=== PATIENT | female | born 1945 | race Caucasian/White ===

== ENCOUNTER 2016-10-21 06:00 | Day surgery (SDC) | payer MEDICARE, OTHER ==
[2016-10-21] MEDS ORDERED: Lactated Ringers 1,000 ML IV SCH (06:30)
[2016-10-21 06:36] VITALS: O2SAT 92
[2016-10-21] MEDS ORDERED: Versed 2 MG/2 ML Injection IV ONE (08:00)
[2016-10-21] MEDS ORDERED: DIPRIVAN 200 MG/20 ML IV ONE ×2 (08:00)
[2016-10-21 08:24] VITALS: BP 123/69; PULSE 69
--- NOTE | 2016-10-21 08:32 | OP ---
SURGERY DATE/TIME: 10/21/2016 0735 PREOPERATIVE DIAGNOSIS: History of colon ulcer. POSTOPERATIVE DIAGNOSIS: Mild sigmoid diverticulosis otherwise normal colon. PROCEDURE: Colonoscopy. SURGEON: Dr. Wadsworth. ANESTHESIA: MAC. Medications given by anesthesia department. HISTORY: The patient is a 71 year-old white female presents now for colonoscopic evaluation. She had a fairly large ulcer in the colon seen approximately two years ago, this was biopsied and found to be benign at the time although we were concerned with the possibility of potential underlying malignancy. The patient was suggested to have examination repeated. She was reappraised of the risks of the procedure including the risk of perforation, phlebitis, untoward reaction to medication, bleeding and missed lesions. The patient verbalized her understanding and desired to have the procedure performed. DESCRIPTION OF PROCEDURE: The patient was given the medications by the anesthesia department. She had continuous pulse oximetry, ECG monitoring, intermittent blood pressure monitoring, and tidal CO2 monitoring during the examination. She was placed in the left lateral decubitus position. A digital rectal examination was performed and revealed normal anal sphincter tone and no masses. The flexible Olympus pediatric colonoscope was used to intubate the rectum. A view of the colon was developed sequentially to the cecum. Upon insertion and withdrawal, including a retroflex view in the rectum was noted a few mild sigmoid diverticula. There was no evidence of the ulcer that was seen previously. The scope was removed from the patient who tolerated the procedure well and was sent back to OP recovery in good condition. The prep was noted to be fair to good.
== END 2016-10-21 09:00 | disposition home or self-care (01) ==
LOC: SDC 06:00
PROVIDERS: ATTEND Family Medicine
PROC: 0DJD8ZZ Inspection of Lower Intestinal Tract, Via Natural or Artificial Opening Endoscopic (ICD-10-PCS; principal; 2016-10-21)
DX: K63.3 Ulcer of intestine (principal); K57.30 Diverticulosis of large intestine without perforation or abscess without bleeding
CPT/HCPCS: 00810; J2250; J2704

== ENCOUNTER 2022-04-07 09:25 | Inpatient (IN) | payer MEDICARE, OTHER ==
--- NOTE | 2022-04-07 09:55 | ERPHSYRPT ---
- History of Present Illness Time Seen by Provider: 04/07/22 09:40 Source: patient, EMS, old records Exam Limitations: no limitations Physician History: This is a morbidly obese 76-year-old white female patient of Dr. Wadsworth who presents with 4-day history of worsening shortness of breath. It is especially worsened over the last 2 days despite prednisone prescription from her primary care provider. Patient does have some central, substernal nonradiating sharp pain with deep inspiration only. Patient was brought to the emergency department by EMS. Patient received a DuoNeb treatment and a single dose of 125 mg intravenous Solu-Medrol prior to arrival. Patient has a history of COPD, asthma, hypertension, hypothyroidism and hyperlipidemia. She does not wear oxygen at home. On arrival, EMS reports that the patient's room air oxygenation level was in the high 80s. Timing/Duration: day(s) (For) Activities at Onset: none Severity of Dyspnea-Max: moderate Severity of Dyspnea-Current: mild (To moderate) Possible Cause: occasional episodes Associated Symptoms: wheezing, weakness, painful breathing (With deep inspiration there is sharp nonradiating substernal central pain), No chest pain/discomfort, No productive cough Allergies/Adverse Reactions: Penicillins Allergy (Severe, Verified 04/07/22 09:30) stops breathing Home Medications: Amlodipine Besylate 5 mg PO HS 10/21/16 [History] Multivitamin [Daily Multivitamin] 1 each PO DAILY 10/21/16 [History] Pravastatin Sodium 40 mg PO DAILY 10/21/16 [History] Spironolactone [Aldactone] 25 mg PO HS 10/21/16 [History] Albuterol Sulfate [Proair Respiclick] 90 mcg IH DAILY PRN PRN 01/21/22 [History] Carvedilol [Coreg] 25 mg PO BID 01/21/22 [History] Levothyroxine Sodium [Levothyroxine] 75 mcg PO DAILY 01/21/22 [History] Hx Tetanus, Diphtheria Vaccination/Date Given: Yes Hx Influenza Vaccination/Date Given: Yes Hx Pneumococcal Vaccination/Date Given: Yes Travel Risk - International Travel Have you traveled outside of the country in past 3 weeks: No - Coronavirus Screening Are you exhibiting any of the following symptoms?: Yes Symptoms: Shortness of Breath Close contact with a COVID-19 positive Pt in past 14-21 Days: No - Review of Systems Constitutional: Weakness Eyes: No Symptoms Ears, Nose, & Throat: No Symptoms Respiratory: Dyspnea, Wheezing Cardiac: No Symptoms Abdominal/Gastrointestinal: No Symptoms Genitourinary Symptoms: No Symptoms Musculoskeletal: No Symptoms Skin: No Symptoms Neurological: No Symptoms Psychological: No Symptoms Endocrine: No Symptoms Hematologic/Lymphatic: No Symptoms Immunological/Allergic: No Symptoms All Other Systems: Reviewed and Negative - Past Medical History Pertinent Past Medical History: Yes Neurological History: No Pertinent History ENT History: No Pertinent History Cardiac History: Hypertension, Other Respiratory History: Asthma, Bronchitis, COPD Endocrine Medical History: Hypothyroidism Musculoskeletal History: Arthritis GI Medical History: Colitis History: No Pertinent History Psycho-Social History: No Pertinent History Female Reproductive Disorders: Other Other Medical History: leaky valve, polyps removed from uterus - Past Surgical History Past Surgical History: Yes Neuro Surgical History: No Pertinent History Cardiac: No Pertinent History Respiratory: No Pertinent History, Other Gastrointestinal: No Pertinent History Genitourinary: No Pertinent History Musculoskeletal: Joint Replacement Female Surgical History: Other Other Surgical History: carpal tunnel both hands and left foot surgery for arthiritis with stainless steel rolando, total knee replacement bilaterally, - Social History Smoking Status: Never smoker Exposure to second hand smoke: No Drug Use: none Patient Lives Alone: Yes - Nursing Vital Signs Nursing Vital Signs: Initial Vital Signs Pulse Rate 68 04/07/22 09:31 Respiratory Rate 20 04/07/22 09:31 O2 Sat by Pulse Oximetry 88 L 04/07/22 09:31 Pain Scale Pain Intensity 5 - Physical Exam General Appearance: mild distress, alert, anxiety, obese Eye Exam: PERRL/EOMI, eyes nml inspection Ears, Nose, Throat Exam: hearing grossly normal, normal ENT inspection, normal pharynx Neck Exam: normal inspection, non-tender, supple, full range of motion Respiratory Exam: respiratory distress (Mild), airway intact, wheezing (Bilateral expiratory), No chest tenderness Cardiovascular/Chest Exam: normal heart sounds, regular rate/rhythm, normal peripheral pulses Abdominal/Gastrointestinal Exam: soft, normal bowel sounds, No tenderness Rectal Exam: not done Extremity Exam: non-tender, normal range of motion, normal inspection, normal capillary refill, no calf tenderness, no pedal edema, pelvis stable, No calf tenderness Neurologic Exam: alert, oriented x 3, cooperative, perfume compounder II-XII nml as tested, normal mood/affect, sensation nml Skin Exam: normal color, warm, dry Lymphatic Exam: No adenopathy SpO2 Interpretation: normal O2 Delivery: Nasal Cannula (5 L O2 via nasal cannula, patient's oxygenation is 93 to 95%) - Course Nursing assessment & vital signs reviewed: Yes EKG Interpreted by Me: RATE (63), Sinus Rhythm, NORMAL AXIS, NORMAL QRS, NORMAL ST-T, Other (Prolonged CA interval. No evidence of acute ischemic changes on today's EKG.) Ordered Tests: Active Orders 24 hr Category Date Time Status Insurance Healthcare Consultant STAT Care 04/07/22 09:45 Active EKG-ER Only STAT Care 04/07/22 09:44 Active Garcia [Catheter-Cameron Garcia] STAT Care 04/07/22 12:36 Active IV Insertion STAT Care 04/07/22 09:44 Active Pulse Oximetry (ED) STAT Care 04/07/22 09:44 Active CHEST 1 VIEW (PORTABLE) Stat Exams 04/07/22 09:46 Completed CHEST WITH CONTRAST [CT] Stat Exams 04/07/22 11:02 Completed BLOOD CULTURE Stat Lab 04/07/22 10:11 Received CBC W DIFF Stat Lab 04/07/22 10:04 Completed CMP Stat Lab 04/07/22 10:04 Completed D-DIMER QUANTITATIVE Stat Lab 04/07/22 10:04 Completed Lactic Acid Stat Lab 04/07/22 09:44 Completed NT PRO BNP Stat Lab 04/07/22 10:04 Completed POTASSIUM, URINE RANDOM Stat Lab 04/07/22 12:37 Ordered Sodium, Urine Stat Lab 04/07/22 12:37 Ordered TROPONIN Q4H Lab 04/07/22 10:04 Completed TROPONIN Q4H Lab 04/07/22 13:45 Ordered TROPONIN Q4H Lab 04/07/22 17:45 Ordered Respiratory Therapy Assessment DAILY RT 04/07/22 12:34 Completed Transfer Order Routine Transfer 04/07/22 Ordered Medication Summary Generic Name Dose Route Start Last Admin Trade Name Freq PRN Reason Stop Dose Admin Sodium Chloride 500 mls @ 50 mls/hr 04/07/22 11:15 04/07/22 11:57 Sodium Chloride 0.9% 500 Ml IV 05/07/22 11:14 50 mls/hr .Q10H MARSHALL Administration Levofloxacin/Dextrose 500 mg in 100 mls @ 100 mls/hr 04/07/22 12:40 12/29/22 12:45 Levofloxacin 500mg/100ml D5w IV 04/07/22 13:39 100 mls/hr STAT STA 100 mls/hr Administration Discontinued Medications Generic Name Dose Route Start Last Admin Trade Name Kristi PRN Reason Stop Dose Admin Albuterol Sulfate 2.5 mg 04/07/22 12:34 04/07/22 12:36 Albuterol Sulfate 2.5 Mg/3 Ml Neb IH 04/07/22 12:35 2.5 mg STAT ONE Administration Albuterol Sulfate Confirm 04/07/22 12:35 Albuterol Sulfate 2.5 Mg/3 Ml Neb Administered 04/07/22 12:36 Dose 2.5 mg IH .STK-MED ONE Furosemide 20 mg 04/07/22 11:03 04/07/22 11:57 Furosemide 20 Mg/Vial IV 04/07/22 11:04 20 mg STAT ONE Administration Furosemide Confirm 04/07/22 11:53 Furosemide 20 Mg/Vial Administered 04/07/22 11:54 Dose 20 mg .ROUTE .STK-MED ONE Levofloxacin/Dextrose Confirm 04/07/22 12:44 Levofloxacin 500mg/100ml D5w Administered 04/07/22 12:45 Dose 500 mg in 100 mls @ ud IV .STK-MED ONE Oseltamivir Phosphate 75 mg 04/07/22 12:46 Oseltamivir 75 Mg Cap PO 04/07/22 12:47 STAT ONE Lab/Rad Data: Laboratory Result Diagrams 04/07/22 10:04 04/07/22 10:04 Laboratory Results 04/07/22 04/07/22 04/07/22 Range/Units 10:12 10:04 10:04 WBC (4.0-10.5) x10^3/uL RBC (4.1-5.4) x10^6/uL Hgb (12.0-16.0) g/dL Hct (35-47) % MCV (78-100) fL MCH (26-32) pg MCHC (32-36) g/dL RDW (11.5-14.0) % Plt Count (150-450) x10^3/uL MPV (7.5-11.0) fL Gran % (36.0-66.0) % Immature Gran % (Auto) (0.00-0.4) % Nucleat RBC Rel Count (0.00-0.1) % Eos # (Auto) (0-0.5) x10^3/uL Immature Gran # (Auto) (0.00-0.03) x10^3u/L Absolute Lymphs (auto) (1.0-4.6) x10^3/uL Absolute Monos (auto) (0.0-1.3) x10^3/uL Absolute Nucleated RBC (0.00-0.01) x10^3u/L Lymphocytes % (24.0-44.0) % Monocytes % (0.0-12.0) % Eosinophils % (0.00-5.0) % Basophils % (0.0-0.4) % Absolute Granulocytes (1.4-6.9) x10^3/uL Basophils # (0-0.4) x10^3/uL D-Dimer 0.65 H* (0.0-0.50) mg/L Sodium (137-145) mmol/L Potassium (3.5-5.1) mmol/L Chloride (98-107) mmol/L Carbon Dioxide (22-30) mmol/L Anion Gap (5-15) MEQ/L BUN (7-17) mg/dL Creatinine (0.52-1.04) mg/dL Estimated GFR ML/MIN Glucose (74-106) mg/dL Lactic Acid (0.4-2.0) Calcium (8.4-10.2) mg/dL Total Bilirubin (0.2-1.3) mg/dL AST (14-36) U/L ALT (0-35) U/L Alkaline Phosphatase (38-126) U/L Troponin I < 0.012 (0.000-0.034) ng/mL NT-Pro-B Natriuret Pep (0-900) pg/mL Serum Total Protein (6.3-8.2) g/dL Albumin (3.5-5.0) g/dL Influenza Type A Ag POSITIVE (NEGATIVE) Influenza Type B Ag NEGATIVE (NEGATIVE) RSV (PCR) NEGATIVE (Negative) SARS-CoV-2 (PCR) NEGATIVE (NEGATIVE) 04/07/22 04/07/22 04/07/22 Range/Units 10:04 10:04 09:44 WBC 11.7 H (4.0-10.5) x10^3/uL RBC 5.02 (4.1-5.4) x10^6/uL Hgb 12.5 (12.0-16.0) g/dL Hct 39.0 (35-47) % MCV 77.7 L (78-100) fL MCH 24.9 L (26-32) pg MCHC 32.1 (32-36) g/dL RDW 13.8 (11.5-14.0) % Plt Count 226 (150-450) x10^3/uL MPV 9.5 (7.5-11.0) fL Gran % 84.7 H (36.0-66.0) % Immature Gran % (Auto) 0.5 H (0.00-0.4) % Nucleat RBC Rel Count 0.0 (0.00-0.1) % Eos # (Auto) 0 (0-0.5) x10^3/uL Immature Gran # (Auto) 0.06 H (0.00-0.03) x10^3u/L Absolute Lymphs (auto) 0.88 L (1.0-4.6) x10^3/uL Absolute Monos (auto) 0.84 (0.0-1.3) x10^3/uL Absolute Nucleated RBC 0.00 (0.00-0.01) x10^3u/L Lymphocytes % 7.5 L (24.0-44.0) % Monocytes % 7.2 (0.0-12.0) % Eosinophils % 0.0 (0.00-5.0) % Basophils % 0.1 (0.0-0.4) % Absolute Granulocytes 9.88 H (1.4-6.9) x10^3/uL Basophils # 0.01 (0-0.4) x10^3/uL D-Dimer (0.0-0.50) mg/L Sodium 122 L (137-145) mmol/L Potassium 4.8 (3.5-5.1) mmol/L Chloride 87 L (98-107) mmol/L Carbon Dioxide 26 (22-30) mmol/L Anion Gap 13.6 (5-15) MEQ/L BUN 25 H (7-17) mg/dL Creatinine 0.79 (0.52-1.04) mg/dL Estimated GFR > 60.0 ML/MIN Glucose 183 H (74-106) mg/dL Lactic Acid 1.4 (0.4-2.0) Calcium 8.3 L (8.4-10.2) mg/dL Total Bilirubin 1.00 (0.2-1.3) mg/dL AST 41 H (14-36) U/L ALT 33 (0-35) U/L Alkaline Phosphatase 92 (38-126) U/L Troponin I (0.000-0.034) ng/mL NT-Pro-B Natriuret Pep 1090 H (0-900) pg/mL Serum Total Protein 7.9 (6.3-8.2) g/dL Albumin 4.1 (3.5-5.0) g/dL Influenza Type A Ag (NEGATIVE) Influenza Type B Ag (NEGATIVE) RSV (PCR) (Negative) SARS-CoV-2 (PCR) (NEGATIVE) - Progress Progress: improved, re-examined Air Movement: good Progress Note: 04/07/22 10:22 Chest x-ray shows borderline cardiomegaly with mild pulmonary edema and tiny bibasilar effusions. Superimposed pneumonia not completely excluded. 04/07/22 12:43 CTA of chest shows no obvious central pulmonary embolus. There is diffuse bilateral lower lobe consolidating/nonconsolidating airspace disease left greater than right Medical decision making: I spoke with Dr. Umanzor. We will be placing this patient in observation. We will place her on oxygen and have respiratory therapy follow her. We will provide her with nebulizer treatments. Her sodium is also low and we will repeat labs in the morning. She does have some airspace disease bilaterally and we will place her on Levaquin antibiotics. Dr. Umanzor also wants to place her on Tamiflu since she is positive for influenza a infection. 04/07/22 12:46 Blood Culture(s) Obtained: Yes Antibiotics given: Yes Discussed with : Samuel Counseled pt/family regarding: lab results, diagnosis, rad results - Departure Departure Disposition: Observation Clinical Impression: Hypoxia, Bilateral pulmonary infiltrates on chest x-ray, Influenza A H1N1 infection, Hyponatremia Condition: Stable Critical Care Time: No Referrals: FRANCISCO WADSWORTH [Primary Care Provider] - Follow up/PCP as directed
--- NOTE | 2022-04-07 10:07 | XRAY ---
Indication: Short of breath. Comparison: July 06, 2012 Portable chest demonstrates new borderline cardiomegaly, central vascular congestion, mild pulmonary edema, and tiny bibasilar effusions favoring cardiac decompensation/CHF. Superimposed pneumonia not completely excluded. Bony thorax intact with mild osteopenia and degenerative changes.
[2022-04-07 10:19] LABS: Absolute Neutrophil Ct (ANC) 9.88 x10^3/uL (1.4-6.9); Basophil (Absolute #) 0.01 x10^3/uL (0-0.4); Eosinophil (Absolute #) 0 x10^3/uL (0-0.5); Hemoglobin 12.5 g/dL (12.0-16.0); Lymphocyte (Absolute #) 0.88 x10^3/uL (1.0-4.6); Lymphocytes % 7.5 % (24.0-44.0); Mean Cell Volume 77.7 fL (78-100); Mean Corpuscular Hemoglobin 24.9 pg (26-32); Mean Corpuscular Hgb Concent. 32.1 g/dL (32-36); Mean Platelet Volume 9.5 fL (7.5-11.0); Monocyte (Absolute #) 0.84 x10^3/uL (0.0-1.3); Monocytes % 7.2 % (0.0-12.0); Neutrophil % 84.7 % (36.0-66.0); Platelet Count 226 x10^3/uL (150-450); Red Blood Count 5.02 x10^6/uL (4.1-5.4); Red Cell Distribution Width 13.8 % (11.5-14.0); White Blood Count 11.7 x10^3/uL (4.0-10.5)
[2022-04-07 10:42] LABS: ALBUMIN 4.1 g/dL (3.5-5.0); ALKALINE PHOSPHATASE 92 U/L (38-126); ANION GAP 13.6 MEQ/L (5-15); BLOOD UREA NITROGEN 25 mg/dL (7-17); CHLORIDE 87 mmol/L (98-107); Calcium 8.3 mg/dL (8.4-10.2); Carbon Dioxide 26 mmol/L (22-30); Creatinine 1 0.79 mg/dL (0.52-1.04); EST GLOMERULAR FILTRATION RATE > 60.0 ML/MIN; Glucose 183 mg/dL (74-106); NT PRO BNP 1090 pg/mL (0-900); Potassium 4.8 mmol/L (3.5-5.1); SGOT/AST 41 U/L (14-36); SGPT/ALT 33 U/L (0-35); SODIUM 122 mmol/L (137-145); Total Protein 7.9 g/dL (6.3-8.2)
[2022-04-07 11:00] LABS: INFLUENZA B NEGATIVE (NEGATIVE); RESPIRATORY SYNCTIAL VIRUS NEGATIVE (Negative); SARS-CoV-2 Xpert Express NEGATIVE (NEGATIVE)
[2022-04-07] MEDS ORDERED: Lasix 20 MG/2 ML IV ONE (11:03)
[2022-04-07 11:06] LABS: INFLUENZA A POSITIVE (NEGATIVE)
[2022-04-07] MEDS ORDERED: Sodium Chloride 0.9% 500 ML 500 ML IV SCH (11:15)
[2022-04-07] MEDS ORDERED: Lasix 20 MG/2 ML ONE (11:53)
[2022-04-07] MEDS ORDERED: Sodium Chloride 0.9% 500 ML 500 ML IV ONE (11:53)
--- NOTE | 2022-04-07 12:30 | XRAY ---
Indication: Short of breath. Elevated d-dimer. Multiple contiguous images obtained through the chest using 100 cc Isovue 370 contrast and PE protocol. Comparison: None Good opacification of the pulmonary arteries. However diffuse respiration artifact limits evaluation for pulmonary embolus. No obvious central pulmonary embolus. Heart is borderline enlarged. Aorta is mildly arteriosclerotic without aneurysm/dissection. Tiny right hilar calcified nodes. No pathologic mediastinal/hilar lymphadenopathy. Lungs demonstrate diffuse patchy consolidating and nonconsolidating airspace disease in both lower lobes, left greater than right. Also inferior bilateral upper lobe subsegmental atelectasis/scarring. No effusion. Bony thorax intact with mild degenerative changes throughout the spine. Limited upper abdomen demonstrates fatty liver. Impression: 1. Pulmonary embolus evaluation limited by respiration artifact. No obvious central pulmonary embolus. 2. Diffuse bilateral lower lobe consolidating/nonconsolidating airspace disease left greater than right. 3. Incidental fatty liver.
[2022-04-07] MEDS ORDERED: PROVENTIL 2.5 MG/3 ML NEB IH ONE ×2 (12:34→12:35)
[2022-04-07] MEDS ORDERED: Levofloxacin 500MG/100ML D5W 500 MG/100 ML BAG IV STA (12:40)
[2022-04-07] MEDS ORDERED: Levofloxacin 500MG/100ML D5W 500 MG/100 ML BAG IV ONE (12:44)
[2022-04-07] MEDS ORDERED: Tamiflu 75MG Capsule PO ONE ×2 (12:46→14:11)
[2022-04-07 13:49] LABS: POTASSIUM, URINE RANDOM 30.3 mmol/L
[2022-04-07] MEDS ORDERED: Zofran 4 MG/2 ML VIAL IV PRN (14:34)
[2022-04-07] MEDS ORDERED: TYLENOL 325 MG PO PRN (14:34)
[2022-04-07] MEDS: DUONEB 0.5-3 MG/3 ml Neb IH SCH ×2 (16:13→18:54)
[2022-04-07] MEDS ORDERED: NON-FORMULARY ITEM (Albuterol Sulfate [Proair Respiclick] 90 MCG Aer.Pow.Ba) IH PRN (17:25)
[2022-04-07] MEDS ORDERED: VENTOLIN COMMON CANISTER IH PRN (17:30)
[2022-04-07] MEDS: Aldactone 25 MG PO SCH (18:30)
[2022-04-07] MEDS ORDERED: Atrovent 0.5MG NEBULE IH SCH (19:00)
[2022-04-07] MEDS ORDERED: NON-FORMULARY ITEM (Pravastatin Sodium [Pravastatin Sodium] 40 MG Tablet) PO SCH (22:00)
[2022-04-07] MEDS ORDERED: NON-FORMULARY ITEM (Carvedilol [Coreg] 25 MG Tablet) PO SCH (22:00)
[2022-04-07] MEDS ORDERED: Tamiflu 75MG Capsule PO SCH (22:00)
[2022-04-07] MEDS: ZOCOR 20MG PO SCH (22:23)
[2022-04-07] MEDS: NORVASC 5 MG PO SCH (22:23)
[2022-04-07] MEDS: COREG 12.5 MG PO SCH (22:23)
[2022-04-07] MEDS: OSELTAMIVIR PHOSPHATE 30 MG CAP PO SCH (22:23)
[2022-04-08] MEDS: Sodium Chloride 0.9% 1000 ML 1,000 ML IV SCH (02:08)
[2022-04-08 05:16] LABS: Absolute Neutrophil Ct (ANC) 9.14 x10^3/uL (1.4-6.9); Basophil (Absolute #) 0.01 x10^3/uL (0-0.4); Eosinophil (Absolute #) 0 x10^3/uL (0-0.5); Hematocrit 36.9 % (35-47); Lymphocyte (Absolute #) 0.81 x10^3/uL (1.0-4.6); Lymphocytes % 7.8 % (24.0-44.0); Mean Cell Volume 76.4 fL (78-100); Mean Corpuscular Hemoglobin 24.8 pg (26-32); Mean Corpuscular Hgb Concent. 32.5 g/dL (32-36); Mean Platelet Volume 9.3 fL (7.5-11.0); Monocyte (Absolute #) 0.43 x10^3/uL (0.0-1.3); Monocytes % 4.1 % (0.0-12.0); Neutrophil % 87.5 % (36.0-66.0); Platelet Count 250 x10^3/uL (150-450); Red Blood Count 4.83 x10^6/uL (4.1-5.4); Red Cell Distribution Width 13.8 % (11.5-14.0); White Blood Count 10.4 x10^3/uL (4.0-10.5)
[2022-04-08] MEDS: SYNTHROID 75 MCG PO SCH (05:48)
[2022-04-08 05:57] LABS: ALBUMIN 3.7 g/dL (3.5-5.0); ALKALINE PHOSPHATASE 81 U/L (38-126); ANION GAP 10.6 MEQ/L (5-15); BLOOD UREA NITROGEN 24 mg/dL (7-17); CHLORIDE 87 mmol/L (98-107); Calcium 8.1 mg/dL (8.4-10.2); Carbon Dioxide 28 mmol/L (22-30); Creatinine 1 0.79 mg/dL (0.52-1.04); EST GLOMERULAR FILTRATION RATE > 60.0 ML/MIN; Glucose 164 mg/dL (74-106); NT PRO BNP 2260 pg/mL (0-900); Potassium 4.9 mmol/L (3.5-5.1); SGOT/AST 37 U/L (14-36); SGPT/ALT 33 U/L (0-35); SODIUM 121 mmol/L (137-145); Total Protein 7.3 g/dL (6.3-8.2)
[2022-04-08] MEDS ORDERED: LEVOTHYROXINE SODIUM 75 MCG PO SCH (06:00)
[2022-04-08] MEDS: DUONEB 0.5-3 MG/3 ml Neb IH SCH ×4 (07:43→18:49)
[2022-04-08] MEDS: THERAGRAN MULTIVITAMIN PO SCH (09:25)
[2022-04-08] MEDS: OSELTAMIVIR PHOSPHATE 30 MG CAP PO SCH ×2 (09:25→21:16)
[2022-04-08] MEDS: COREG 12.5 MG PO SCH ×2 (09:25→21:16)
[2022-04-08] MEDS: Levaquin 250MG/50ML D5W 250 MG/50 ML BAG IV SCH (09:25)
[2022-04-08] MEDS ORDERED: NON-FORMULARY ITEM (Multivitamin [Daily Multivitamin] 1 EACH Tablet) PO SCH (10:00)
[2022-04-08] MEDS ORDERED: Levofloxacin 500MG/100ML D5W 500 MG/100 ML BAG IV SCH (10:00)
--- NOTE | 2022-04-08 10:04 | PCM.HP ---
History of Present Illness - Chief Complaint Chief Complaint: Pneumonia, Flu A History of Present Illness: is a 76 year old female pt of Dr. Wadsworth with PMHx COPD, asthma, htn, hypothyroidism, morbid obesity, and hyperlipidemia who was admitted through ER with PNA and influenza A. She had been feeling poorly off and on x 1-2 weeks with cough prod yellow-green sputum; for the past 4d she had increasing SOB despite being started on prednisone. She was brought to ER by EMS and received duonebs and 125mg solumedrol prior to arrival. CXR with question of pneumonia, confirmed on CT chest; was neg for PE, but showed both consolidating and nonconsolidating bilateral lower airspace disease. Pt was also found to have sodium of 122. Had complained of some 4/10 substernal sharp chest pain intermittently, but is currently not having any. She does think she pulled a muscle while coughing last night, as she now has some RUQ pain with coughing. She was started on levaquin IV and her hypoxemia has improved from 5L initially to 3L currently per NC. Pt notes she's been drinking a lot, only water, and her eating has not been bad either. - Review of Systems Respiratory: Cough, Short Of Breath Cardiac: Chest Pain, Edema (intermittent LE edema, mild) Abdominal/Gastrointestinal: Abdominal Pain, Diarrhea (for 2 days, resolved) Neurological: Dizziness (few times, lightheaded) Medications & Allergies Home Medications: Home Medication List Amlodipine Besylate 5 mg PO HS 10/21/16 [History Confirmed 04/07/22] Multivitamin [Daily Multivitamin] 1 each PO DAILY 10/21/16 [History Confirmed 04/07/22] Pravastatin Sodium 40 mg PO HS 10/21/16 [History Confirmed 04/07/22] Spironolactone [Aldactone] 25 mg PO 1700 10/21/16 [History Confirmed 04/07/22] Albuterol Sulfate [Proair Respiclick] 1 - 2 puff IH Q4HPRN PRN 01/21/22 [History Confirmed 04/07/22] Carvedilol [Coreg] 25 mg PO BID 01/21/22 [History Confirmed 04/07/22] Levothyroxine Sodium [Levothyroxine] 75 mcg PO 0600 01/21/22 [History Confirmed 04/07/22] Ipratropium Malcolm 1 neb IH QID 04/07/22 [History Confirmed 04/07/22] Allergies/Adverse Reactions: Allergies Allergy/AdvReac Type Severity Reaction Status Date / Time Penicillins Allergy Severe stops Verified 04/07/22 14:48 breathing - Past Medical History Past Medical History: Yes Neurological History: No Pertinent History ENT History: No Pertinent History Cardiac History: Hypertension, Other Respiratory History: Asthma, Bronchitis, COPD Endocrine Medical History: Hypothyroidism Musculoskelatal History: Arthritis GI Medical History: Colitis History: No Pertinent History Pyscho-Social History: No Pertinent History Reproductive Disorders: Other Comment: leaky valve, polyps removed from uterus - Female History Are you now?: No - Past Surgical History Past Surgical History: Yes Neuro Surgical History: No Pertinent History Cardiac History: No Pertinent History Respiratory Surgery: No Pertinent History, Other GI Surgical History: No Pertinent History Genitourinary Surgical Hx: No Pertinent History Musculskeletal Surgical Hx: Joint Replacement Female Surgical History: Other Other Surgical History: carpal tunnel both hands and left foot surgery for arthiritis with stainless steel rolando, total knee replacement bilaterally, - Social History Smoking Status: Never smoker Exposure to second hand smoke: No Alcohol: None Drug Use: none - Physical Exam Vital Signs: Vital Signs - 24 hr Temp Pulse Resp BP Pulse Ox 04/08/22 08:00 97.1 F 67 16 186/81 97 04/08/22 07:43 64 16 100 04/08/22 04:00 97.9 F 63 22 177/82 94 L 04/08/22 00:09 65 20 93 L 04/08/22 00:00 96.9 F 62 22 171/77 93 L 04/07/22 20:00 97.3 F 66 20 186/86 93 L 04/07/22 18:54 64 20 94 L 04/07/22 16:14 57 L 20 96 04/07/22 16:00 18 04/07/22 14:57 97.1 F 64 20 197/90 91 L 04/07/22 14:51 97.1 F 64 22 197/90 91 L 04/07/22 14:00 70 17 140/70 92 L 04/07/22 13:00 68 92 L 04/07/22 12:49 58 L 24 142/77 93 L 04/07/22 12:36 63 20 91 L 04/07/22 11:11 93 H 91 L 04/07/22 10:30 65 26 H 147/103 92 L General Appearance: no apparent distress, alert Neurologic Exam: oriented x 3, cooperative Eye Exam: eyes nml inspection Ears, Nose, Throat Exam: moist mucous membranes Neck Exam: normal inspection, non-tender, No lymphadenopathy, No thyromegaly Respiratory Exam: diminished breath sounds (fair to good air exchange), rhonchi (scattered), wheezing (throughout), No crackles/rales, No stridor Cardiovascular Exam: regular rate/rhythm, normal heart sounds, No murmur Gastrointestinal/Abdomen Exam: soft, normal bowel sounds, No tenderness, No distention, No mass, No guarding, No rebound Back Exam: normal inspection, No rash Extremity Exam: normal inspection, No pedal edema, No swelling Skin Exam: normal color, warm, dry, No rash Results - Labs Lab/Micro Results: Lab Results-Last 24 Hours 04/07/22 04/07/22 04/07/22 Range/Units 09:44 10:04 10:04 WBC 11.7 H (4.0-10.5) x10^3/uL RBC 5.02 (4.1-5.4) x10^6/uL Hgb 12.5 (12.0-16.0) g/dL Hct 39.0 (35-47) % MCV 77.7 L (78-100) fL MCH 24.9 L (26-32) pg MCHC 32.1 (32-36) g/dL RDW 13.8 (11.5-14.0) % Plt Count 226 (150-450) x10^3/uL MPV 9.5 (7.5-11.0) fL Gran % 84.7 H (36.0-66.0) % Immature Gran % (Auto) 0.5 H (0.00-0.4) % Nucleat RBC Rel Count 0.0 (0.00-0.1) % Eos # (Auto) 0 (0-0.5) x10^3/uL Immature Gran # (Auto) 0.06 H (0.00-0.03) x10^3u/L Absolute Lymphs (auto) 0.88 L (1.0-4.6) x10^3/uL Absolute Monos (auto) 0.84 (0.0-1.3) x10^3/uL Absolute Nucleated RBC 0.00 (0.00-0.01) x10^3u/L Lymphocytes % 7.5 L (24.0-44.0) % Monocytes % 7.2 (0.0-12.0) % Eosinophils % 0.0 (0.00-5.0) % Basophils % 0.1 (0.0-0.4) % Absolute Granulocytes 9.88 H (1.4-6.9) x10^3/uL Basophils # 0.01 (0-0.4) x10^3/uL D-Dimer (0.0-0.50) mg/L Sodium 122 L (137-145) mmol/L Potassium 4.8 (3.5-5.1) mmol/L Chloride 87 L (98-107) mmol/L Carbon Dioxide 26 (22-30) mmol/L Anion Gap 13.6 (5-15) MEQ/L BUN 25 H (7-17) mg/dL Creatinine 0.79 (0.52-1.04) mg/dL Estimated GFR > 60.0 ML/MIN Glucose 183 H (74-106) mg/dL Lactic Acid 1.4 (0.4-2.0) Calcium 8.3 L (8.4-10.2) mg/dL Total Bilirubin 1.00 (0.2-1.3) mg/dL AST 41 H (14-36) U/L ALT 33 (0-35) U/L Alkaline Phosphatase 92 (38-126) U/L Troponin I (0.000-0.034) ng/mL NT-Pro-B Natriuret Pep 1090 H (0-900) pg/mL Serum Total Protein 7.9 (6.3-8.2) g/dL Albumin 4.1 (3.5-5.0) g/dL Urine Sodium (30-90) mmol/L Urine Potassium mmol/L Influenza Type A Ag (NEGATIVE) Influenza Type B Ag (NEGATIVE) RSV (PCR) (Negative) SARS-CoV-2 (PCR) (NEGATIVE) 04/07/22 04/07/22 04/07/22 Range/Units 10:04 10:04 10:12 WBC (4.0-10.5) x10^3/uL RBC (4.1-5.4) x10^6/uL Hgb (12.0-16.0) g/dL Hct (35-47) % MCV (78-100) fL MCH (26-32) pg MCHC (32-36) g/dL RDW (11.5-14.0) % Plt Count (150-450) x10^3/uL MPV (7.5-11.0) fL Gran % (36.0-66.0) % Immature Gran % (Auto) (0.00-0.4) % Nucleat RBC Rel Count (0.00-0.1) % Eos # (Auto) (0-0.5) x10^3/uL Immature Gran # (Auto) (0.00-0.03) x10^3u/L Absolute Lymphs (auto) (1.0-4.6) x10^3/uL Absolute Monos (auto) (0.0-1.3) x10^3/uL Absolute Nucleated RBC (0.00-0.01) x10^3u/L Lymphocytes % (24.0-44.0) % Monocytes % (0.0-12.0) % Eosinophils % (0.00-5.0) % Basophils % (0.0-0.4) % Absolute Granulocytes (1.4-6.9) x10^3/uL Basophils # (0-0.4) x10^3/uL D-Dimer 0.65 H* (0.0-0.50) mg/L Sodium (137-145) mmol/L Potassium (3.5-5.1) mmol/L Chloride (98-107) mmol/L Carbon Dioxide (22-30) mmol/L Anion Gap (5-15) MEQ/L BUN (7-17) mg/dL Creatinine (0.52-1.04) mg/dL Estimated GFR ML/MIN Glucose (74-106) mg/dL Lactic Acid (0.4-2.0) Calcium (8.4-10.2) mg/dL Total Bilirubin (0.2-1.3) mg/dL AST (14-36) U/L ALT (0-35) U/L Alkaline Phosphatase (38-126) U/L Troponin I < 0.012 (0.000-0.034) ng/mL NT-Pro-B Natriuret Pep (0-900) pg/mL Serum Total Protein (6.3-8.2) g/dL Albumin (3.5-5.0) g/dL Urine Sodium (30-90) mmol/L Urine Potassium mmol/L Influenza Type A Ag POSITIVE (NEGATIVE) Influenza Type B Ag NEGATIVE (NEGATIVE) RSV (PCR) NEGATIVE (Negative) SARS-CoV-2 (PCR) NEGATIVE (NEGATIVE) 04/07/22 04/07/22 04/07/22 Range/Units 12:37 13:05 17:41 WBC (4.0-10.5) x10^3/uL RBC (4.1-5.4) x10^6/uL Hgb (12.0-16.0) g/dL Hct (35-47) % MCV (78-100) fL MCH (26-32) pg MCHC (32-36) g/dL RDW (11.5-14.0) % Plt Count (150-450) x10^3/uL MPV (7.5-11.0) fL Gran % (36.0-66.0) % Immature Gran % (Auto) (0.00-0.4) % Nucleat RBC Rel Count (0.00-0.1) % Eos # (Auto) (0-0.5) x10^3/uL Immature Gran # (Auto) (0.00-0.03) x10^3u/L Absolute Lymphs (auto) (1.0-4.6) x10^3/uL Absolute Monos (auto) (0.0-1.3) x10^3/uL Absolute Nucleated RBC (0.00-0.01) x10^3u/L Lymphocytes % (24.0-44.0) % Monocytes % (0.0-12.0) % Eosinophils % (0.00-5.0) % Basophils % (0.0-0.4) % Absolute Granulocytes (1.4-6.9) x10^3/uL Basophils # (0-0.4) x10^3/uL D-Dimer (0.0-0.50) mg/L Sodium (137-145) mmol/L Potassium (3.5-5.1) mmol/L Chloride (98-107) mmol/L Carbon Dioxide (22-30) mmol/L Anion Gap (5-15) MEQ/L BUN (7-17) mg/dL Creatinine (0.52-1.04) mg/dL Estimated GFR ML/MIN Glucose (74-106) mg/dL Lactic Acid (0.4-2.0) Calcium (8.4-10.2) mg/dL Total Bilirubin (0.2-1.3) mg/dL AST (14-36) U/L ALT (0-35) U/L Alkaline Phosphatase (38-126) U/L Troponin I < 0.012 < 0.012 (0.000-0.034) ng/mL NT-Pro-B Natriuret Pep (0-900) pg/mL Serum Total Protein (6.3-8.2) g/dL Albumin (3.5-5.0) g/dL Urine Sodium 22 L (30-90) mmol/L Urine Potassium 30.3 mmol/L Influenza Type A Ag (NEGATIVE) Influenza Type B Ag (NEGATIVE) RSV (PCR) (Negative) SARS-CoV-2 (PCR) (NEGATIVE) 04/08/22 04/08/22 Range/Units 05:06 05:06 WBC 10.4 (4.0-10.5) x10^3/uL RBC 4.83 (4.1-5.4) x10^6/uL Hgb 12.0 (12.0-16.0) g/dL Hct 36.9 (35-47) % MCV 76.4 L (78-100) fL MCH 24.8 L (26-32) pg MCHC 32.5 (32-36) g/dL RDW 13.8 (11.5-14.0) % Plt Count 250 (150-450) x10^3/uL MPV 9.3 (7.5-11.0) fL Gran % 87.5 H (36.0-66.0) % Immature Gran % (Auto) 0.5 H (0.00-0.4) % Nucleat RBC Rel Count 0.0 (0.00-0.1) % Eos # (Auto) 0 (0-0.5) x10^3/uL Immature Gran # (Auto) 0.05 H (0.00-0.03) x10^3u/L Absolute Lymphs (auto) 0.81 L (1.0-4.6) x10^3/uL Absolute Monos (auto) 0.43 (0.0-1.3) x10^3/uL Absolute Nucleated RBC 0.00 (0.00-0.01) x10^3u/L Lymphocytes % 7.8 L (24.0-44.0) % Monocytes % 4.1 (0.0-12.0) % Eosinophils % 0.0 (0.00-5.0) % Basophils % 0.1 (0.0-0.4) % Absolute Granulocytes 9.14 H (1.4-6.9) x10^3/uL Basophils # 0.01 (0-0.4) x10^3/uL D-Dimer (0.0-0.50) mg/L Sodium 121 L (137-145) mmol/L Potassium 4.9 (3.5-5.1) mmol/L Chloride 87 L (98-107) mmol/L Carbon Dioxide 28 (22-30) mmol/L Anion Gap 10.6 (5-15) MEQ/L BUN 24 H (7-17) mg/dL Creatinine 0.79 (0.52-1.04) mg/dL Estimated GFR > 60.0 ML/MIN Glucose 164 H (74-106) mg/dL Lactic Acid (0.4-2.0) Calcium 8.1 L (8.4-10.2) mg/dL Total Bilirubin 0.80 (0.2-1.3) mg/dL AST 37 H (14-36) U/L ALT 33 (0-35) U/L Alkaline Phosphatase 81 (38-126) U/L Troponin I (0.000-0.034) ng/mL NT-Pro-B Natriuret Pep 2260 H (0-900) pg/mL Serum Total Protein 7.3 (6.3-8.2) g/dL Albumin 3.7 (3.5-5.0) g/dL Urine Sodium (30-90) mmol/L Urine Potassium mmol/L Influenza Type A Ag (NEGATIVE) Influenza Type B Ag (NEGATIVE) RSV (PCR) (Negative) SARS-CoV-2 (PCR) (NEGATIVE) - Radiology Impressions Radiology Exams & Impressions: Radiology Procedures Category Date Time Status CHEST 1 VIEW (PORTABLE) Stat Exams 04/07/22 09:46 Completed CHEST WITH CONTRAST [CT] Stat Exams 04/07/22 11:02 Completed - Other Procedures and Tests Respiratory Therapy 04/07/22 14:34 Oxygen Nasal Cannula 5 lpm 04/07/22 14:46 Respiratory Therapy Assessment DAILY 04/07/22 23:55 Flutter Therapy UD Assessment/Plan (1) Pneumonia Current Visit: Yes Status: Acute Qualifiers: Pneumonia type: due to unspecified organism Laterality: bilateral Lung location: lower lobe of lung Qualified Code(s): J18.9 - Pneumonia, unspecified organism Assessment & Plan: On IV levaquin. Her O2 requirement is decreasing. Will add steroid for her distinct wheezing. Code(s): J18.9 - PNEUMONIA, UNSPECIFIED ORGANISM (2) Influenza A H1N1 infection Current Visit: Yes Status: Acute Assessment & Plan: on tamiflu. Code(s): J10.1 - FLU DUE TO OTH IDENT INFLUENZA VIRUS W OTH RESP MANIFEST (3) COPD (chronic obstructive pulmonary disease) Current Visit: Yes Status: Acute Qualifiers: COPD type: unspecified COPD Qualified Code(s): J44.9 - Chronic obstructive pulmonary disease, unspecified (4) Hyponatremia Current Visit: Yes Status: Acute Assessment & Plan: fluid restriction. Code(s): E87.1 - HYPO-OSMOLALITY AND HYPONATREMIA (5) Asthma Current Visit: Yes Status: Acute Qualifiers: Asthma severity: unspecified severity Asthma persistence: unspecified Asthma complication type: with acute exacerbation Qualified Code(s): J45.901 - Unspecified asthma with (acute) exacerbation Code(s): J45.909 - UNSPECIFIED ASTHMA, UNCOMPLICATED (6) HTN (hypertension) Current Visit: Yes Status: Chronic Qualifiers: Hypertension type: primary hypertension Qualified Code(s): I10 - Essential (primary) hypertension Code(s): I10 - ESSENTIAL (PRIMARY) HYPERTENSION (7) Hypoxia Current Visit: Yes Status: Acute Assessment & Plan: will go ahead and check echocardiogram. 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 Code(s): R09.02 - HYPOXEMIA
[2022-04-08] MEDS: solu-MEDROL 40 MG, Sterile H2O 10 ml 1 ML IV SCH ×4 (11:08→21:16)
[2022-04-08] MEDS ORDERED: NON-FORMULARY ITEM (Spironolactone [Aldactone] 50 MG Tablet) PO SCH (17:00)
[2022-04-08] MEDS: Aldactone 25 MG PO SCH (17:41)
[2022-04-08] MEDS: ZOCOR 20MG PO SCH (21:16)
[2022-04-08] MEDS: NORVASC 5 MG PO SCH (21:16)
[2022-04-09] MEDS: PROVENTIL 2.5 MG/3 ML NEB IH PRN (04:15)
[2022-04-09] MEDS: SYNTHROID 75 MCG PO SCH (06:28)
[2022-04-09] MEDS: Sodium Chloride 0.9% 1000 ML 1,000 ML IV SCH ×2 (07:45→15:01)
--- NOTE | 2022-04-09 08:10 | XRAY ---
Indication: Pneumonia. Comparison: April 07, 2022 Portable chest demonstrates interval mild improving CT proven bibasilar airspace disease with mild residual still present. Heart remains borderline enlarged. No new/acute cardiopulmonary abnormalities.
[2022-04-09] MEDS: solu-MEDROL 40 MG, Sterile H2O 10 ml 1 ML IV SCH ×4 (09:02→21:53)
[2022-04-09] MEDS: COREG 12.5 MG PO SCH ×2 (09:02→21:53)
[2022-04-09] MEDS: Levaquin 250MG/50ML D5W 250 MG/50 ML BAG IV SCH (09:02)
[2022-04-09] MEDS: THERAGRAN MULTIVITAMIN PO SCH (09:02)
[2022-04-09] MEDS: OSELTAMIVIR PHOSPHATE 30 MG CAP PO SCH ×2 (09:02→21:53)
[2022-04-09 10:20] LABS: Absolute Neutrophil Ct (ANC) 8.16 x10^3/uL (1.4-6.9); Basophil (Absolute #) 0.01 x10^3/uL (0-0.4); Eosinophil (Absolute #) 0 x10^3/uL (0-0.5); Hematocrit 39.4 % (35-47); Hemoglobin 12.2 g/dL (12.0-16.0); Lymphocyte (Absolute #) 0.82 x10^3/uL (1.0-4.6); Lymphocytes % 8.4 % (24.0-44.0); Mean Cell Volume 78.5 fL (78-100); Mean Corpuscular Hemoglobin 24.3 pg (26-32); Mean Platelet Volume 9.2 fL (7.5-11.0); Monocyte (Absolute #) 0.65 x10^3/uL (0.0-1.3); Monocytes % 6.7 % (0.0-12.0); Neutrophil % 83.6 % (36.0-66.0); Platelet Count 293 x10^3/uL (150-450); Red Blood Count 5.02 x10^6/uL (4.1-5.4); Red Cell Distribution Width 13.4 % (11.5-14.0); White Blood Count 9.8 x10^3/uL (4.0-10.5)
[2022-04-09] MEDS: DUONEB 0.5-3 MG/3 ml Neb IH SCH ×3 (10:34→19:29)
[2022-04-09 10:56] LABS: ANION GAP 9.9 MEQ/L (5-15); BLOOD UREA NITROGEN 26 mg/dL (7-17); CHLORIDE 86 mmol/L (98-107); Calcium 8.1 mg/dL (8.4-10.2); Carbon Dioxide 28 mmol/L (22-30); Creatinine 1 0.89 mg/dL (0.52-1.04); EST GLOMERULAR FILTRATION RATE > 60.0 ML/MIN; Glucose 221 mg/dL (74-106); Potassium 5.2 mmol/L (3.5-5.1)
[2022-04-09 11:16] LABS: SODIUM 118 mmol/L (137-145)
--- NOTE | 2022-04-09 13:26 | PCM.NOTE ---
Date and Time: 04/09/22 1317 Subjective Assessment: Pt is feeling better, less wheezing. Blood cx neg x 2. Dev po. - Review of Systems Constitutional: No Fever Respiratory: Cough, Short Of Breath Objective Exam General Appearance: no apparent distress, alert Neurologic Exam: oriented x 3, cooperative Skin Exam: normal color, warm, dry, No rash Eye Exam: eyes nml inspection Ears, Nose, Throat Exam: moist mucous membranes Neck Exam: normal inspection Respiratory Exam: diminished breath sounds (fair air exchange), wheezing (faint, throughout, expiratory) Cardiovascular Exam: regular rate/rhythm, normal heart sounds, No murmur Gastrointestinal/Abdomen Exam: soft, normal bowel sounds, No tenderness, No distention, No mass, No guarding, No rebound Extremity Exam: normal inspection, No pedal edema, No swelling OBJECTIVE DATA Vital Signs: Vital Signs - 24 hr Temp Pulse Resp BP Pulse Ox 04/09/22 12:00 18 04/09/22 11:42 96.9 F 72 18 130/82 92 L 04/09/22 10:34 74 18 94 L 04/09/22 07:45 18 04/09/22 07:26 96.9 F 60 18 132/69 94 L 04/09/22 04:15 76 18 94 L 04/09/22 04:00 97.9 F 54 L 21 154/70 95 04/09/22 00:00 97.4 F 81 18 131/66 96 04/08/22 20:45 18 04/08/22 20:00 97.3 F 77 20 132/66 94 L 04/08/22 18:53 85 18 95 04/08/22 16:00 97.7 F 74 20 134/90 94 L 04/08/22 15:22 84 18 94 L Pain Assessment - Last Documented Pain Intensity 3 Pain Scale Used 0-10 Pain Scale Intake and Output: Intake & Output 04/07/22 04/08/22 04/09/22 04/10/22 11:59 11:59 11:59 11:59 Intake Total 1150 3401 Output Total 1200 1250 Balance -50 2151 Weight 147.9 kg 136 kg Lab Results: Lab Results-Last 24 Hours 04/09/22 04/09/22 Range/Units 10:20 10:20 WBC 9.8 (4.0-10.5) x10^3/uL RBC 5.02 (4.1-5.4) x10^6/uL Hgb 12.2 (12.0-16.0) g/dL Hct 39.4 (35-47) % MCV 78.5 (78-100) fL MCH 24.3 L (26-32) pg MCHC 31.0 L (32-36) g/dL RDW 13.4 (11.5-14.0) % Plt Count 293 (150-450) x10^3/uL MPV 9.2 (7.5-11.0) fL Gran % 83.6 H (36.0-66.0) % Immature Gran % (Auto) 1.2 H (0.00-0.4) % Nucleat RBC Rel Count 0.0 (0.00-0.1) % Eos # (Auto) 0 (0-0.5) x10^3/uL Immature Gran # (Auto) 0.12 H (0.00-0.03) x10^3u/L Absolute Lymphs (auto) 0.82 L (1.0-4.6) x10^3/uL Absolute Monos (auto) 0.65 (0.0-1.3) x10^3/uL Absolute Nucleated RBC 0.00 (0.00-0.01) x10^3u/L Lymphocytes % 8.4 L (24.0-44.0) % Monocytes % 6.7 (0.0-12.0) % Eosinophils % 0.0 (0.00-5.0) % Basophils % 0.1 (0.0-0.4) % Absolute Granulocytes 8.16 H (1.4-6.9) x10^3/uL Basophils # 0.01 (0-0.4) x10^3/uL Sodium 118 L* (137-145) mmol/L Potassium 5.2 H (3.5-5.1) mmol/L Chloride 86 L (98-107) mmol/L Carbon Dioxide 28 (22-30) mmol/L Anion Gap 9.9 (5-15) MEQ/L BUN 26 H (7-17) mg/dL Creatinine 0.89 (0.52-1.04) mg/dL Estimated GFR > 60.0 ML/MIN Glucose 221 H (74-106) mg/dL Calcium 8.1 L (8.4-10.2) mg/dL Radiology Exams: Radiology Procedures Category Date Time Status CHEST 1 VIEW (PORTABLE) Routine Exams 04/09/22 07:00 Completed ECHO W/2D AND DOPPLER [US] Routine Exams 04/08/22 11:17 Taken HEAD WITHOUT CONTRAST [CT] Urgent Exams 04/09/22 13:17 Ordered Assessment/Plan (1) Pneumonia Current Visit: Yes Status: Acute Qualifiers: Pneumonia type: due to unspecified organism Laterality: bilateral Lung location: lower lobe of lung Qualified Code(s): J18.9 - Pneumonia, unspecified organism Assessment & Plan: She is improving. On day #2 levaquin. Also on solumedrol 40mg BID IV. Code(s): J18.9 - PNEUMONIA, UNSPECIFIED ORGANISM (2) Hyponatremia Current Visit: Yes Status: Acute Assessment & Plan: Worsened, from 122 to 118 with her fluid restriction. She is asx. She is not chronically low. Her urine sodium was a little low on admission, so could be hypovolemia, in which case I will increase her isotonic saline (will start with a 1 L bolus, 500cc every hour over 2 hours). Also, checking for intracranial abnormality. Check phosphate and lipids. Recheck urine Na, urine osmolality, serum osmolality. Code(s): E87.1 - HYPO-OSMOLALITY AND HYPONATREMIA (3) Influenza A H1N1 infection Current Visit: Yes Status: Acute Code(s): J10.1 - FLU DUE TO OTH IDENT INFLUENZA VIRUS W OTH RESP MANIFEST (4) COPD (chronic obstructive pulmonary disease) Current Visit: Yes Status: Acute Qualifiers: COPD type: unspecified COPD Qualified Code(s): J44.9 - Chronic obstructive pulmonary disease, unspecified (5) Asthma Current Visit: Yes Status: Acute Qualifiers: Asthma severity: unspecified severity Asthma persistence: unspecified Asthma complication type: with acute exacerbation Qualified Code(s): J45.901 - Unspecified asthma with (acute) exacerbation Code(s): J45.909 - UNSPECIFIED ASTHMA, UNCOMPLICATED (6) HTN (hypertension) Current Visit: Yes Status: Chronic Qualifiers: Hypertension type: primary hypertension Qualified Code(s): I10 - Essential (primary) hypertension Code(s): I10 - ESSENTIAL (PRIMARY) HYPERTENSION (7) Hypoxia Current Visit: Yes Status: Acute Assessment & Plan: was down to 3L O2 per NC all night! This is an improvement, but I still think she will need several more days of inpatient treatment. Code(s): R09.02 - HYPOXEMIA
[2022-04-09 14:27] LABS: PHOSPHOROUS 3.3 mg/dL (2.5-4.5); Risk Ratio 4.9
[2022-04-09] MEDS: Atrovent 0.5MG NEBULE IH SCH ×2 (15:41→19:15)
[2022-04-09] MEDS: PROVENTIL 2.5 MG/3 ML NEB IH SCH ×2 (15:41→19:15)
[2022-04-09] MEDS: Aldactone 25 MG PO SCH (16:16)
[2022-04-09] MEDS ORDERED: Sodium Chloride 0.9% 500 ML 500 ML IV ONE (20:05)
[2022-04-09] MEDS ORDERED: Sodium Chloride 0.9% 1000 ML 1,000 ML IV STA (20:08)
[2022-04-09] MEDS: ZOCOR 20MG PO SCH (21:53)
[2022-04-09] MEDS: NORVASC 5 MG PO SCH (21:55)
[2022-04-09 23:55] LABS: ANION GAP 6.6 MEQ/L (5-15); BLOOD UREA NITROGEN 24 mg/dL (7-17); CHLORIDE 90 mmol/L (98-107); Calcium 7.8 mg/dL (8.4-10.2); Carbon Dioxide 29 mmol/L (22-30); EST GLOMERULAR FILTRATION RATE > 60.0 ML/MIN; Glucose 183 mg/dL (74-106); Potassium 4.9 mmol/L (3.5-5.1); SODIUM 121 mmol/L (137-145)
[2022-04-10] MEDS: Sodium Chloride 0.9% 1000 ML 1,000 ML IV SCH ×2 (04:08→19:33)
[2022-04-10 05:59] LABS: ANION GAP 7.8 MEQ/L (5-15); BLOOD UREA NITROGEN 23 mg/dL (7-17); CHLORIDE 92 mmol/L (98-107); Carbon Dioxide 27 mmol/L (22-30); Creatinine 1 0.86 mg/dL (0.52-1.04); EST GLOMERULAR FILTRATION RATE > 60.0 ML/MIN; Glucose 194 mg/dL (74-106); Potassium 4.9 mmol/L (3.5-5.1); SODIUM 122 mmol/L (137-145)
[2022-04-10] MEDS: SYNTHROID 75 MCG PO SCH (06:18)
[2022-04-10] MEDS ORDERED: PROVENTIL Solution 2.5 MG/0.5 ML IH ONE (07:04)
[2022-04-10] MEDS: Atrovent 0.5MG NEBULE IH SCH ×4 (07:30→19:24)
[2022-04-10] MEDS: PROVENTIL Solution 2.5 MG/0.5 ML IH SCH ×4 (07:30→19:24)
[2022-04-10] MEDS: PROVENTIL 2.5 MG/3 ML NEB IH SCH (07:31)
[2022-04-10] MEDS: THERAGRAN MULTIVITAMIN PO SCH (08:30)
[2022-04-10] MEDS: OSELTAMIVIR PHOSPHATE 30 MG CAP PO SCH ×2 (08:30→21:34)
[2022-04-10] MEDS: COREG 12.5 MG PO SCH ×2 (08:30→21:34)
[2022-04-10] MEDS: Levaquin 250MG/50ML D5W 250 MG/50 ML BAG IV SCH (08:31)
[2022-04-10] MEDS: solu-MEDROL 40 MG, Sterile H2O 10 ml 1 ML IV SCH ×4 (08:31→21:33)
[2022-04-10] MEDS: Tums EX 750 MG PO SCH (11:38)
[2022-04-10] MEDS: Tessalon Perles 100 MG PO PRN ×2 (11:50→16:21)
--- NOTE | 2022-04-10 13:45 | PCM.NOTE ---
Date and Time: 04/10/22 1342 Subjective Assessment: pt is feeling much better today. breathing is better, but still on O2 at 3L NC. - Review of Systems Constitutional: No Fever Respiratory: Cough, Short Of Breath Objective Exam General Appearance: no apparent distress, alert Neurologic Exam: oriented x 3, cooperative Skin Exam: normal color, warm, dry, No rash Eye Exam: eyes nml inspection Ears, Nose, Throat Exam: moist mucous membranes Neck Exam: normal inspection Respiratory Exam: diminished breath sounds (good air exchange), wheezing (faint), No crackles/rales, No rhonchi Cardiovascular Exam: regular rate/rhythm, normal heart sounds, No murmur Gastrointestinal/Abdomen Exam: soft, normal bowel sounds, No tenderness, No distention, No mass, No guarding, No rebound Extremity Exam: normal inspection, No pedal edema, No swelling OBJECTIVE DATA Vital Signs: Vital Signs - 24 hr Temp Pulse Resp BP Pulse Ox 04/10/22 11:57 97.5 F 69 18 135/63 94 L 04/10/22 08:52 76 16 95 04/10/22 08:00 18 04/10/22 07:37 97.5 F 76 18 143/71 95 04/10/22 04:00 97.0 F 78 22 135/87 94 L 04/09/22 23:48 97.3 F 71 21 139/71 94 L 04/09/22 23:42 18 04/09/22 20:00 97.6 F 73 20 143/72 96 04/09/22 19:15 66 20 96 04/09/22 16:00 18 04/09/22 15:42 71 18 94 L 04/09/22 15:14 96.8 F 68 18 141/65 94 L Pain Assessment - Last Documented Pain Intensity 0 Pain Scale Used 0-10 Pain Scale Intake and Output: Intake & Output 04/08/22 04/09/22 04/10/22 04/11/22 11:59 11:59 11:59 11:59 Intake Total 1150 3401 3313 60 Output Total 1200 1250 2650 1650 Balance -50 2151 663 -1590 Weight 136 kg Lab Results: Lab Results-Last 24 Hours 04/07/22 04/09/22 04/09/22 Range/Units 13:43 10:30 14:00 Sodium (137-145) mmol/L Potassium (3.5-5.1) mmol/L Chloride (98-107) mmol/L Carbon Dioxide (22-30) mmol/L Anion Gap (5-15) MEQ/L BUN (7-17) mg/dL Creatinine (0.52-1.04) mg/dL Estimated GFR ML/MIN Glucose (74-106) mg/dL Calcium (8.4-10.2) mg/dL Phosphorus 3.3 (2.5-4.5) mg/dL NT-Pro-B Natriuret Pep (0-900) pg/mL Triglycerides 103 (30-150) mg/dL Cholesterol 163 (50-200) mg/dL LDL Cholesterol 96 (30-100) mg/dL HDL Cholesterol 33 L (40-60) mg/dL Heart Disease Risk Ratio 4.9 Urine Osmolality 640 (.) mOsmol/kg Urine Sodium 10 L (30-90) mmol/L 04/09/22 04/10/22 04/10/22 Range/Units 23:36 05:05 05:06 Sodium 121 L 122 L (137-145) mmol/L Potassium 4.9 4.9 (3.5-5.1) mmol/L Chloride 90 L 92 L (98-107) mmol/L Carbon Dioxide 29 27 (22-30) mmol/L Anion Gap 6.6 7.8 (5-15) MEQ/L BUN 24 H 23 H (7-17) mg/dL Creatinine 0.90 0.86 (0.52-1.04) mg/dL Estimated GFR > 60.0 > 60.0 ML/MIN Glucose 183 H 194 H (74-106) mg/dL Calcium 7.8 L 8.0 L (8.4-10.2) mg/dL Phosphorus (2.5-4.5) mg/dL NT-Pro-B Natriuret Pep 5090 H (0-900) pg/mL Triglycerides (30-150) mg/dL Cholesterol (50-200) mg/dL LDL Cholesterol (30-100) mg/dL HDL Cholesterol (40-60) mg/dL Heart Disease Risk Ratio Urine Osmolality (.) mOsmol/kg Urine Sodium (30-90) mmol/L Radiology Exams: Radiology Procedures Category Date Time Status CHEST 1 VIEW (PORTABLE) Routine Exams 04/09/22 07:00 Completed HEAD WITHOUT CONTRAST [CT] Urgent Exams 04/09/22 13:17 Ordered Assessment/Plan (1) Pneumonia Current Visit: Yes Status: Acute Qualifiers: Pneumonia type: due to unspecified organism Laterality: bilateral Lung location: lower lobe of lung Qualified Code(s): J18.9 - Pneumonia, unspecified organism Assessment & Plan: much improved. On day #3 levaquin IV. Also on 40mg BID IV steroid. Code(s): J18.9 - PNEUMONIA, UNSPECIFIED ORGANISM (2) Hyponatremia Current Visit: Yes Status: Acute Assessment & Plan: Increased but just to 122. Advised does need CT head to r/o intracranial pathology. Will go ahead with 1 dose of 100mL 3% saline. Code(s): E87.1 - HYPO-OSMOLALITY AND HYPONATREMIA (3) Influenza A H1N1 infection Current Visit: Yes Status: Acute Assessment & Plan: on tamiflu Code(s): J10.1 - FLU DUE TO OTH IDENT INFLUENZA VIRUS W OTH RESP MANIFEST (4) COPD (chronic obstructive pulmonary disease) Current Visit: Yes Status: Chronic Qualifiers: COPD type: unspecified COPD Qualified Code(s): J44.9 - Chronic obstructive pulmonary disease, unspecified (5) Asthma Current Visit: Yes Status: Chronic Qualifiers: Asthma severity: unspecified severity Asthma persistence: unspecified A sthma complication type: with acute exacerbation Qualified Code(s): J45.901 - Unspecified asthma with (acute) exacerbation Code(s): J45.909 - UNSPECIFIED ASTHMA, UNCOMPLICATED (6) HTN (hypertension) Current Visit: Yes Status: Chronic Qualifiers: Hypertension type: primary hypertension Qualified Code(s): I10 - Essential (primary) hypertension Code(s): I10 - ESSENTIAL (PRIMARY) HYPERTENSION (7) Hypoxia Current Visit: Yes Status: Acute Code(s): R09.02 - HYPOXEMIA
[2022-04-10 15:12] LABS: ANION GAP 8.7 MEQ/L (5-15); BLOOD UREA NITROGEN 25 mg/dL (7-17); CHLORIDE 98 mmol/L (98-107); Carbon Dioxide 27 mmol/L (22-30); Creatinine 1 0.93 mg/dL (0.52-1.04); EST GLOMERULAR FILTRATION RATE > 60.0 ML/MIN; Glucose 198 mg/dL (74-106); Potassium 5.1 mmol/L (3.5-5.1); SODIUM 129 mmol/L (137-145)
[2022-04-10] MEDS: Aldactone 25 MG PO SCH (17:59)
[2022-04-10] MEDS: ZOCOR 20MG PO SCH (21:34)
[2022-04-10] MEDS: NORVASC 5 MG PO SCH (21:34)
[2022-04-11] MEDS: PROVENTIL Solution 2.5 MG/0.5 ML IH SCH ×4 (05:15→18:33)
[2022-04-11] MEDS: Atrovent 0.5MG NEBULE IH SCH ×4 (05:15→18:33)
[2022-04-11] MEDS: SYNTHROID 75 MCG PO SCH (05:16)
[2022-04-11] MEDS: Sodium Chloride 0.9% 1000 ML 1,000 ML IV SCH ×2 (05:16→16:13)
[2022-04-11 06:54] LABS: Absolute Neutrophil Ct (ANC) 6.85 x10^3/uL (1.4-6.9); Basophil (Absolute #) 0.01 x10^3/uL (0-0.4); Eosinophil (Absolute #) 0 x10^3/uL (0-0.5); Hematocrit 38.5 % (35-47); Lymphocytes % 9.2 % (24.0-44.0); Mean Corpuscular Hemoglobin 24.9 pg (26-32); Mean Corpuscular Hgb Concent. 31.2 g/dL (32-36); Monocyte (Absolute #) 0.54 x10^3/uL (0.0-1.3); Monocytes % 6.2 % (0.0-12.0); Neutrophil % 79.2 % (36.0-66.0); Platelet Count 293 x10^3/uL (150-450); Red Blood Count 4.81 x10^6/uL (4.1-5.4); Red Cell Distribution Width 13.6 % (11.5-14.0); White Blood Count 8.7 x10^3/uL (4.0-10.5)
[2022-04-11 07:09] LABS: ANION GAP 9.8 MEQ/L (5-15); BLOOD UREA NITROGEN 24 mg/dL (7-17); CHLORIDE 98 mmol/L (98-107); Calcium 8.1 mg/dL (8.4-10.2); Carbon Dioxide 27 mmol/L (22-30); Creatinine 1 0.88 mg/dL (0.52-1.04); EST GLOMERULAR FILTRATION RATE > 60.0 ML/MIN; Glucose 187 mg/dL (74-106); Potassium 5.1 mmol/L (3.5-5.1); SODIUM 130 mmol/L (137-145)
[2022-04-11] MEDS: Tums EX 750 MG PO SCH (10:30)
[2022-04-11] MEDS: OSELTAMIVIR PHOSPHATE 30 MG CAP PO SCH ×2 (10:31→22:16)
[2022-04-11] MEDS: COREG 12.5 MG PO SCH ×2 (10:31→22:16)
[2022-04-11] MEDS: THERAGRAN MULTIVITAMIN PO SCH (10:31)
[2022-04-11] MEDS: PROVENTIL 2.5 MG/3 ML NEB IH PRN (10:45)
[2022-04-11] MEDS: solu-MEDROL 40 MG, Sterile H2O 10 ml 1 ML IV SCH ×4 (11:43→22:16)
[2022-04-11] MEDS ORDERED: Lasix 40 MG/4 ML IV SCH (12:00)
[2022-04-11] MEDS: Levaquin 250MG/50ML D5W 250 MG/50 ML BAG IV SCH (12:04)
[2022-04-11] MEDS ORDERED: ROCEPHIN 1 Gm-D5w 50 ml Bag** 1 G/50 ML IVPB IV SCH (13:00)
--- NOTE | 2022-04-11 13:14 | PCM.NOTE ---
Date and Time: 04/11/22 1309 Subjective Assessment: Pt is feeling much better, breathing really well. Jessica po. Still has urinary catheter, but never had one prior to admission. RN heard irregular heart rate this morning. - Review of Systems Constitutional: No Fever Respiratory: Cough, Short Of Breath Cardiac: No Edema Objective Exam General Appearance: no apparent distress, alert, obese Neurologic Exam: oriented x 3, cooperative, normal mood/affect Skin Exam: normal color, warm, dry, No rash Eye Exam: eyes nml inspection Ears, Nose, Throat Exam: moist mucous membranes Neck Exam: normal inspection Respiratory Exam: diminished breath sounds (lung sounds distant), No crack les/rales, No rhonchi, No wheezing Cardiovascular Exam: normal heart sounds, irregular, No murmur Gastrointestinal/Abdomen Exam: soft, normal bowel sounds, No tenderness, No distention Extremity Exam: No pedal edema, No swelling Back Exam: normal inspection, No rash OBJECTIVE DATA Vital Signs: Vital Signs - 24 hr Temp Pulse Resp BP Pulse Ox 04/11/22 11:54 97.5 F 75 18 175/83 91 L 04/11/22 11:01 70 16 94 L 04/11/22 07:09 96.9 F 85 19 152/82 04/11/22 05:41 94 L 04/11/22 05:19 83 16 96 04/11/22 04:00 96.9 F 75 19 138/65 95 04/11/22 00:00 97.1 F 61 20 134/78 95 04/10/22 20:37 97.5 F 76 18 169/73 96 04/10/22 20:00 20 04/10/22 19:25 109 H 18 95 04/10/22 15:52 97.3 F 68 18 167/79 94 L 04/10/22 15:04 69 18 94 L Pain Assessment - Last Documented Pain Intensity 0 Pain Scale Used 0-10 Pain Scale Intake and Output: Intake & Output 04/09/22 04/10/22 04/11/22 04/12/22 11:59 11:59 11:59 11:59 Intake Total 3401 3313 2470 Output Total 1250 2650 5350 Balance 2151 663 -2880 Lab Results: Lab Results-Last 24 Hours 04/10/22 04/11/22 04/11/22 Range/Units 14:45 06:30 06:30 WBC 8.7 (4.0-10.5) x10^3/uL RBC 4.81 (4.1-5.4) x10^6/uL Hgb 12.0 (12.0-16.0) g/dL Hct 38.5 (35-47) % MCV 80.0 (78-100) fL MCH 24.9 L (26-32) pg MCHC 31.2 L (32-36) g/dL RDW 13.6 (11.5-14.0) % Plt Count 293 (150-450) x10^3/uL MPV 9.0 (7.5-11.0) fL Gran % 79.2 H (36.0-66.0) % Immature Gran % (Auto) 5.3 H (0.00-0.4) % Nucleat RBC Rel Count 0.0 (0.00-0.1) % Eos # (Auto) 0 (0-0.5) x10^3/uL Immature Gran # (Auto) 0.46 H (0.00-0.03) x10^3u/L Absolute Lymphs (auto) 0.80 L (1.0-4.6) x10^3/uL Absolute Monos (auto) 0.54 (0.0-1.3) x10^3/uL Absolute Nucleated RBC 0.00 (0.00-0.01) x10^3u/L Lymphocytes % 9.2 L (24.0-44.0) % Monocytes % 6.2 (0.0-12.0) % Eosinophils % 0.0 (0.00-5.0) % Basophils % 0.1 (0.0-0.4) % Absolute Granulocytes 6.85 (1.4-6.9) x10^3/uL Basophils # 0.01 (0-0.4) x10^3/uL Sodium 129 L D 130 L (137-145) mmol/L Potassium 5.1 5.1 (3.5-5.1) mmol/L Chloride 98 98 (98-107) mmol/L Carbon Dioxide 27 27 (22-30) mmol/L Anion Gap 8.7 9.8 (5-15) MEQ/L BUN 25 H 24 H (7-17) mg/dL Creatinine 0.93 0.88 (0.52-1.04) mg/dL Estimated GFR > 60.0 > 60.0 ML/MIN Glucose 198 H 187 H (74-106) mg/dL Calcium 8.0 L 8.1 L (8.4-10.2) mg/dL Radiology Exams: Radiology Procedures Category Date Time Status HEAD WITHOUT CONTRAST [CT] Urgent Exams 04/11/22 13:17 Ordered Assessment/Plan (1) Pneumonia Current Visit: Yes Status: Acute Qualifiers: Pneumonia type: due to unspecified organism Laterality: bilateral Lung location: lower lobe of lung Qualified Code(s): J18.9 - Pneumonia, unspecified organism Assessment & Plan: Doing much better. Completed 4d of levaquin IV, but changing to IV rocephin in light of afib, below. Code(s): J18.9 - PNEUMONIA, UNSPECIFIED ORGANISM (2) Atrial fibrillation Current Visit: Yes Status: Acute Qualifiers: Atrial fibrillation type: unspecified Qualified Code(s): I48.91 - Unspecified atrial fibrillation Assessment & Plan: I agreed with RN exam, and on EKG afib is present. Rate is controlled. Will start anticoagulation (Eliquis). Has-bled score is 2 (low risk). [id number] score is 3 (recommend anticoagulation). Discussed with pt and her grandson. Code(s): I48.91 - UNSPECIFIED ATRIAL FIBRILLATION (3) Hyponatremia Current Visit: Yes Status: Acute Assessment & Plan: Improved, up to 130 this morning. Code(s): E87.1 - HYPO-OSMOLALITY AND HYPONATREMIA (4) Influenza A H1N1 infection Current Visit: Yes Status: Acute Code(s): J10.1 - FLU DUE TO OTH IDENT INFLUENZA VIRUS W OTH RESP MANIFEST (5) COPD (chronic obstructive pulmonary disease) Current Visit: Yes Status: Chronic Qualifiers: COPD type: unspecified COPD Qualified Code(s): J44.9 - Chronic obstructive pulmonary disease, unspecified (6) Asthma Current Visit: Yes Status: Chronic Qualifiers: Asthma severity: unspecified severity Asthma persistence: unspecified Asthma complication type: with acute exacerbation Qualified Code(s): J45.901 - Unspecified asthma with (acute) exacerbation Code(s): J45.909 - UNSPECIFIED ASTHMA, UNCOMPLICATED (7) HTN (hypertension) Current Visit: Yes Status: Chronic Qualifiers: Hypertension type: primary hypertension Qualified Code(s): I10 - Essential (primary) hypertension Code(s): I10 - ESSENTIAL (PRIMARY) HYPERTENSION (8) Hypoxia Current Visit: Yes Status: Acute Code(s): R09.02 - HYPOXEMIA (9) Elevated brain natriuretic peptide (BNP) level Current Visit: Yes Status: Acute Assessment & Plan: More than previously elevated - 5090 today. Not symptomatic, but not really up and moving around. Could be related to afib, certainly. Echo is pending. Will give 40mg IV lasix today. Code(s): R79.89 - OTHER SPECIFIED ABNORMAL FINDINGS OF BLOOD CHEMISTRY
[2022-04-11] MEDS: ELIQUIS 2.5 MG TABLET PO SCH ×2 (13:19→22:16)
[2022-04-11] MEDS: Aldactone 25 MG PO SCH (16:14)
[2022-04-11] MEDS: ZOCOR 20MG PO SCH (22:16)
[2022-04-11] MEDS: NORVASC 5 MG PO SCH (22:16)
[2022-04-12] MEDS: Sodium Chloride 0.9% 1000 ML 1,000 ML IV SCH (02:20)
[2022-04-12 05:09] LABS: Hemoglobin 12.4 g/dL (12.0-16.0); Mean Cell Volume 78.9 fL (78-100); Mean Corpuscular Hemoglobin 24.5 pg (26-32); Mean Platelet Volume 9.2 fL (7.5-11.0); Platelet Count 318 x10^3/uL (150-450); Red Blood Count 5.07 x10^6/uL (4.1-5.4); Red Cell Distribution Width 13.5 % (11.5-14.0); White Blood Count 8.9 x10^3/uL (4.0-10.5)
[2022-04-12] MEDS: SYNTHROID 75 MCG PO SCH (05:13)
[2022-04-12] MEDS: PROVENTIL Solution 2.5 MG/0.5 ML IH SCH (05:19)
[2022-04-12] MEDS: Atrovent 0.5MG NEBULE IH SCH (05:20)
[2022-04-12 05:42] LABS: ALBUMIN 3.2 g/dL (3.5-5.0); ALKALINE PHOSPHATASE 68 U/L (38-126); ANION GAP 7.6 MEQ/L (5-15); BLOOD UREA NITROGEN 29 mg/dL (7-17); CHLORIDE 95 mmol/L (98-107); Carbon Dioxide 28 mmol/L (22-30); Creatinine 1 0.91 mg/dL (0.52-1.04); EST GLOMERULAR FILTRATION RATE > 60.0 ML/MIN; Glucose 209 mg/dL (74-106); NT PRO BNP 2120 pg/mL (0-900); Potassium 4.3 mmol/L (3.5-5.1); SGOT/AST 21 U/L (14-36); SGPT/ALT 29 U/L (0-35); SODIUM 127 mmol/L (137-145); Total Protein 6.1 g/dL (6.3-8.2)
[2022-04-12 05:57] LABS: BAND 2 % (0.0-2.0); Lymphocytes 12 % (24-44); Microcytosis 1+; Monocyte 3 % (0.0-12.0); Platelet Estimate NORMAL (NORMAL); Total Cells Counted 100
[2022-04-12 07:29] VITALS: BP 142/87; PULSE 90; O2SAT 91
[2022-04-12] MEDS: ELIQUIS 2.5 MG TABLET PO SCH (07:57)
[2022-04-12] MEDS: COREG 12.5 MG PO SCH (07:57)
[2022-04-12] MEDS: solu-MEDROL 40 MG, Sterile H2O 10 ml 1 ML IV SCH ×2 (07:58)
[2022-04-12] MEDS: THERAGRAN MULTIVITAMIN PO SCH (07:58)
[2022-04-12] MEDS: Tums EX 750 MG PO SCH (08:09)
--- NOTE | 2022-04-12 08:38 | PCM.DS ---
Discharge Summary Date of Admission: 04/08/22 09:57 Admitting Physician: JANIS MAE DO Primary Care Provider: FRANCISCO WADSWORTH Allergies Allergies Penicillins Allergy (Severe, Verified 04/07/22 14:48) stops breathing Hospital Summary - Hospital Course Hospital Course: is a 76 year old female pt of Dr. Wadsworth with PMHx COPD, asthma, htn, hypothyroidism, morbid obesity, and hyperlipidemia who was admitted through ER with PNA and influenza A. Pneumonia confirmed on CT chest; was neg for PE, but showed both consolidating and nonconsolidating bilateral lower airspace disease. Pt was also found to have sodium of 122. Pneumonia improved steadily and each day she has felt better - today she feels "wonderful." Initially she was quite wheezy but on today's exam she is clear to auscultation throughout and moving air nicely. Will go home without any steroid. She was treated with fluid restriction initially for the hyponatremia, but it actually worsened. Her urine sodium was quite low, so she was given several doses of 100mL 3% saline. Her sodium improved to 130 yesterday, but this morning is 127 so will give another 100mL 3% saline and recheck BMP several hours after that. At home she will drink both water and pedialyte. Recheck lab in 2-3 days. She had elevated BNP that worsened during her stay - was given IV lasix and it improved from 5090 to 2120. Echo is pending. She was found to be in afib the day prior to discharge. She was started on Eliquis, but as it is quite expensive for her (and she failed coumadin in the past - was difficult to control INRs) she discussed with her grandson, who is a physician, and they decided she will take an aspirin a day instead (which is reasonable). Blood sugars elevated throughout her stay (up to 209 this morning). A1c is pending. Pt to go home today. F/u with PCP in 1 week. - Vitals & Intake/Output Vital Signs: Vital Signs Temperature 97.5 F 04/12/22 07:29 Pulse Rate 90 04/12/22 07:29 Respiratory Rate 16 04/12/22 07:29 Blood Pressure 142/87 04/12/22 07:29 O2 Sat by Pulse Oximetry 91 L 04/12/22 07:29 Intake & Output: Intake & Output 04/09/22 04/10/22 04/11/22 04/12/22 11:59 11:59 11:59 11:59 Intake Total 3401 3313 2470 2673 Output Total 1252 2650 5350 4750 Balance 4290 635 -0485 -3703 - Lab Result Diagrams: 04/12/22 04:48 04/12/22 04:48 Lab Results-Last 24 Hrs: Lab Results-Last 24 Hours 04/12/22 04/12/22 04/12/22 Range/Units 04:30 04:48 04:48 WBC 8.9 (4.0-10.5) x10^3/uL RBC 5.07 (4.1-5.4) x10^6/uL Hgb 12.4 (12.0-16.0) g/dL Hct 40.0 (35-47) % MCV 78.9 (78-100) fL MCH 24.5 L (26-32) pg MCHC 31.0 L (32-36) g/dL RDW 13.5 (11.5-14.0) % Plt Count 318 (150-450) x10^3/uL MPV 9.2 (7.5-11.0) fL Segmented Neutrophils 83 H (36.0-66.0) % Band Neutrophils 2 (0.0-2.0) % Lymphocytes (Manual) 12 L (24-44) % Monocytes (Manual) 3 (0.0-12.0) % Platelet Estimate NORMAL (NORMAL) RBC Morphology ABNORMAL Microcytosis 1+ Sodium 127 L (137-145) mmol/L Potassium 4.3 (3.5-5.1) mmol/L Chloride 95 L (98-107) mmol/L Carbon Dioxide 28 (22-30) mmol/L Anion Gap 7.6 (5-15) MEQ/L BUN 29 H (7-17) mg/dL Creatinine 0.91 (0.52-1.04) mg/dL Estimated GFR > 60.0 ML/MIN Glucose 209 H (74-106) mg/dL Hemoglobin A1c 6.47 H (4.5-6.0) % Calcium 8.0 L (8.4-10.2) mg/dL Total Bilirubin 0.60 (0.2-1.3) mg/dL AST 21 (14-36) U/L ALT 29 (0-35) U/L Alkaline Phosphatase 68 (38-126) U/L NT-Pro-B Natriuret Pep 2120 H (0-900) pg/mL Serum Total Protein 6.1 L (6.3-8.2) g/dL Albumin 3.2 L (3.5-5.0) g/dL Micro Results-Entire Visit: Microbiology 04/07/22 10:11 Blood Culture Gram Stain - Final Blood Not Reportable Blood Culture - Final NO GROWTH 04/07/22 10:04 Blood Culture Gram Stain - Final Blood Not Reportable Blood Culture - Final NO GROWTH - Radiology Exams Ordered Rad Exams-Entire Visit: Radiology Procedures Category Date Time Status HEAD WITHOUT CONTRAST [CT] Urgent Exams 04/12/22 13:17 Ordered - Procedures and Test Procedures and Tests throughout Hospitalization: Therapy Orders & Screens 04/07/22 12:34 Respiratory Therapy Assessment DAILY Comment: 04/07/22 14:34 EKG REPEAT IN AM Comment: Oxygen Nasal Cannula 5 lpm Comment: Respiratory Therapy Consult ROUTINE Comment: Reason For Exam: 04/07/22 14:46 Respiratory Therapy Assessment DAILY Comment: 04/07/22 23:55 Flutter Therapy UD Comment: Diagnosis: Pneumonia, Flu A 04/11/22 10:46 EKG ROUTINE Comment: Diagnosis: Pneumonia, Flu A, COPD 04/12/22 05:00 EKG ONCE Comment: Diagnosis: Pneumonia, Flu A, COPD Discharge Exam General Appearance: no apparent distress, alert Neurologic Exam: oriented x 3, cooperative, normal mood/affect Eye Exam: eyes nml inspection Ears, Nose, Throat Exam: moist mucous membranes Neck Exam: normal inspection Respiratory Exam: normal breath sounds, No crackles/rales, No rhonchi, No wheezing Cardiovascular Exam: normal heart sounds, irregular (normal rate), No murmur Gastrointestinal/Abdomen Exam: soft, normal bowel sounds, No tenderness, No distention, No mass, No guarding, No rebound Back Exam: normal inspection, No rash Extremity Exam: No pedal edema, No swelling Skin Exam: normal color, warm, dry, No rash Final Diagnosis/Problem List - Final Discharge Diagnosis/Problem (1) Pneumonia Current Visit: Yes Status: Acute Assessment & Plan: Doing great. Will have her finish 10d of antibiotic (4 more days). Code(s): J18.9 - PNEUMONIA, UNSPECIFIED ORGANISM (2) Atrial fibrillation Current Visit: Yes Status: Acute Assessment & Plan: unsure the chronicity. Home on asa, and f/u with cardiology. Pt refusing DOAC and coumadin at this time, but this is reasonable. Code(s): I48.91 - UNSPECIFIED ATRIAL FIBRILLATION (3) Hyponatremia Current Visit: Yes Status: Acute Assessment & Plan: previously nl. Recheck today prior to discharge to home and recheck in 2-3 day s. Code(s): E87.1 - HYPO-OSMOLALITY AND HYPONATREMIA (4) Influenza A H1N1 infection Current Visit: Yes Status: Acute Assessment & Plan: finished tamiflu Code(s): J10.1 - FLU DUE TO OTH IDENT INFLUENZA VIRUS W OTH RESP MANIFEST (5) COPD (chronic obstructive pulmonary disease) Current Visit: Yes Status: Chronic (6) Asthma Current Visit: Yes Status: Chronic Code(s): J45.909 - UNSPECIFIED ASTHMA, UNCOMPLICATED (7) HTN (hypertension) Current Visit: Yes Status: Chronic Code(s): I10 - ESSENTIAL (PRIMARY) HYPERTENSION (8) Hypoxia Current Visit: Yes Status: Resolved Code(s): R09.02 - HYPOXEMIA (9) Elevated brain natriuretic peptide (BNP) level Current Visit: Yes Status: Acute Assessment & Plan: improved. recheck bnp in 2-3 d. Code(s): R79.89 - OTHER SPECIFIED ABNORMAL FINDINGS OF BLOOD CHEMISTRY - Discharge Disposition: Home, Self-Care Condition: Stable Prescriptions: New Lactobacillus Acidophilus [Acidophilus TABLET] 1 tab PO BID #10 tablet Cefdinir 300 mg PO BID #8 cap Calcium Carbonate 750 mg [Tums EX 750 MG] 750 mg PO DAILY tablet Continue Multivitamin [Daily Multivitamin] 1 each PO DAILY Pravastatin Sodium 40 mg PO HS Spironolactone [Aldactone] 25 mg PO 1700 Amlodipine Besylate 5 mg PO HS Albuterol Sulfate [Proair Respiclick] 1 - 2 puff IH Q4HPRN PRN PRN Reason: Shortness Of Breath Levothyroxine Sodium [Levothyroxine] 75 mcg PO 0600 Carvedilol [Coreg] 25 mg PO BID Ipratropium [place] 1 neb IH QID Follow up with: FRANCISCO WADSWORTH [Primary Care Provider] -
[2022-04-12 10:22] LABS: ANION GAP 11.1 MEQ/L (5-15); Calcium 8.1 mg/dL (8.4-10.2); Creatinine 1 1.01 mg/dL (0.52-1.04); EST GLOMERULAR FILTRATION RATE 56.9 ML/MIN; Potassium 4.4 mmol/L (3.5-5.1)
--- NOTE | 2022-04-12 14:36 | ECHO ---
Transthoracic echocardiographic examination and color Doppler was done on 04/08/2022. INDICATION: Shortness of breath. IMPRESSION: 1) NO DEFINITE REGIONAL WALL MOTION ABNORMALITY. ESTIMATED GLOBAL LEFT VENTRICULAR EJECTION FRACTION BETWEEN 50 TO 55%. 2) MILD MITRAL REGURGITATION. 3) MILD AORTIC REGURGITATION. 4) MILD TO MODERATE TRICUSPID REGURGITATION. RIGHT VENTRICULAR SYSTOLIC PRESSURE OF 42 MM OF MERCURY. 5) MILDLY DILATED RIGHT SIDE CHAMBERS. 6) LEFT VENTRICLE DIASTOLIC DYSFUNCTION. The left ventricle is partially visualized and demonstrated adequate motion of all the segments. Estimated global left ventricular ejection fraction of around 50 to 55%. The left ventricular thickness is normal. The mitral valve is seen and this opens adequately. There is mild mitral regurgitation. Left atrium is normal. Tissue Doppler study of the lateral mitral annulus suggestive of left ventricle diastolic dysfunction. The aortic valve opens adequately. Peak gradient across the aortic valve is 12 mm of Mercury. There is mild aortic regurgitation. The right side chambers appear to be mildly dilated. There is mild to moderate tricuspid regurgitation with right ventricular systolic pressure of 42 mm of Mercury.
[2022-04-12 22:10] LABS: Osmolality, Urine 633 mOsmol/kg (.)
== END 2022-04-12 11:15 | disposition home or self-care (01) | DRG 194 ==
LOC: ED 09:25 → MED SURG 14:30 → OBSVTOIN 04-08 09:57
PROVIDERS: ADMIT Family Medicine; ATTEND Family Medicine
DX: J18.9 Pneumonia, unspecified organism (principal); E87.1 Hypo-osmolality and hyponatremia; I48.91 Unspecified atrial fibrillation; J10.1 Influenza due to other identified influenza virus with other respiratory manifestations; J44.9 Chronic obstructive pulmonary disease, unspecified; J45.909 Unspecified asthma, uncomplicated; I10 Essential (primary) hypertension; R09.02 Hypoxemia; R79.89 Other specified abnormal findings of blood chemistry; E03.9 Hypothyroidism, unspecified; E78.5 Hyperlipidemia, unspecified; Z20.828 Contact with and (suspected) exposure to other viral communicable diseases; Z79.899 Other long term (current) drug therapy
CPT/HCPCS: 0241U; 36415; 51702; 71045; 71260; 80048; 80053; 80061; 83036; 83605; 83721; 83880; 83930; 83935; 84100; 84133; 84300; 84484; 85025; 85379; 87040; 93005; 93041; 93306; 94640; 94667; 94668; 94760; 96360; 96361; 96365; 96374; 99285; G0378; J0696; J1940; J1956; J2920; J7609; A9270-GY

== ENCOUNTER 2024-07-15 13:09 | Observation (INO) | payer MEDICARE, OTHER ==
--- NOTE | 2024-07-15 13:16 | ERPHSYRPT ---
- History of Present Illness Time Seen by Provider: 07/15/24 13:15 Source: patient, family, EMS, old records Physician History: This is a morbidly obese 79-year-old white female patient of Dr. Wadsworth who arrives to the emergency department transported by the lpn rn service secondary to shortness of breath, hypoxia (O2 sats on room air in the 70s), productive cough of yellowish sputum. Patient has not been feeling well over the last few days. She took her great grandson to school today and during the transport, she suddenly began coughing and having significant shortness of breath requiring her to call the paramedics. On arrival, the paramedics provided the patient with a DuoNeb, found her oxygen saturation level to be 70s and placed her on 2 L of oxygen via nasal cannula, provided her with 125 mg of Solu-Medrol. Patient was transported with her oxygen saturation level on 2 L oxygen in the 91 to 92% range. The patient denies chest pain. The patient denies abdominal pain. Patient has a history of atrial fibrillation on Eliquis, COPD, hypothyroidism, hyperlipidemia and hypertension. She does not wear oxygen at home. Timing/Duration: today Activities at Onset: activity Severity of Dyspnea-Max: moderate Severity of Dyspnea-Current: moderate Possible Cause: frequent episodes (Worsens) Modifying Factors: Improves With: coughing Associated Symptoms: cough, ankle swelling, productive cough, No chest pain/discomfort Allergies/Adverse Reactions: Penicillins Allergy (Severe, Verified 07/15/24 13:16) stops breathing Home Medications: Amlodipine Besylate 5 mg PO HS 10/21/16 [History] Pravastatin Sodium 40 mg PO HS 10/21/16 [History] Apixaban [Eliquis] 5 mg PO BID 07/15/24 [History] Carvedilol 12.5 mg [Coreg 12.5 mg] 12.5 mg PO BID 07/15/24 [History] Furosemide 20 mg [Lasix 20 mg] 20 mg PO DAILY 07/15/24 [History] Levothyroxine Sodium 75 Mcg [Synthroid 75 Mcg] 75 mcg PO DAILY 07/15/24 [History] Spironolactone 25 mg [Aldactone 25 MG] 25 mg PO DAILY 07/15/24 [History] Hx Tetanus, Diphtheria Vaccination/Date Given: Yes Hx Influenza Vaccination/Date Given: Yes Hx Pneumococcal Vaccination/Date Given: Yes Travel Risk - International Travel Have you traveled outside of the country in past 3 weeks: No - Emerging Infectious Disease Are you exhibiting symptoms associated with any current EIDs: Yes Symptoms: Cough: New Onset, Shortness of Breath - Review of Systems Constitutional: No Symptoms Eyes: No Symptoms Ears, Nose, & Throat: No Symptoms Respiratory: Cough, Dyspnea, Wheezing Cardiac: No Symptoms Abdominal/Gastrointestinal: No Symptoms Genitourinary Symptoms: No Symptoms Musculoskeletal: No Symptoms Skin: No Symptoms Neurological: No Symptoms Psychological: No Symptoms Endocrine: No Symptoms Hematologic/Lymphatic: No Symptoms Immunological/Allergic: No Symptoms All Other Systems: Reviewed and Negative - Past Medical History Pertinent Past Medical History: Yes Neurological History: No Pertinent History ENT History: No Pertinent History Cardiac History: Hypertension, Other Respiratory History: Asthma, Bronchitis, COPD Endocrine Medical History: Hypothyroidism Musculoskeletal History: Arthritis GI Medical History: Colitis History: No Pertinent History Psycho-Social History: No Pertinent History Female Reproductive Disorders: Other Other Medical History: leaky valve, polyps removed from uterus - Past Surgical History Past Surgical History: Yes Neuro Surgical History: No Pertinent History Cardiac: No Pertinent History Respiratory: No Pertinent History, Other Gastrointestinal: No Pertinent History Genitourinary: No Pertinent History Musculoskeletal: Joint Replacement Female Surgical History: Other Other Surgical History: carpal tunnel both hands and left foot surgery for arthiritis with stainless steel rolando, total knee replacement bilaterally, - Social History Smoking Status: Never smoker Exposure to second hand smoke: No Drug Use: none - Nursing Vital Signs Nursing Vital Signs: Initial Vital Signs Temperature 97.6 F 07/15/24 13:09 Pulse Rate 117 H 07/15/24 13:09 Respiratory Rate 30 H 07/15/24 13:09 Blood Pressure 154/102 07/15/24 13:09 O2 Sat by Pulse Oximetry 92 L 07/15/24 13:09 Pain Scale Pain Intensity 0 - Physical Exam General Appearance: mild distress, alert, anxiety, obese Eye Exam: PERRL/EOMI, eyes nml inspection Ears, Nose, Throat Exam: hearing grossly normal, normal ENT inspection, normal pharynx Neck Exam: normal inspection, non-tender, supple, full range of motion Respiratory Exam: respiratory distress, airway intact, wheezing (Bilateral dif fuse), No chest tenderness Cardiovascular/Chest Exam: tachycardia Abdominal/Gastrointestinal Exam: soft, normal bowel sounds, tenderness Rectal Exam: not done Extremity Exam: non-tender, normal range of motion, pelvis stable, pedal edema Neurologic Exam: alert, oriented x 3, cooperative, analytics consultant II-XII nml as tested, sensation nml Skin Exam: normal color, warm, dry Lymphatic Exam: No adenopathy SpO2 Interpretation: borderline oxygenation O2 Delivery: Nasal Cannula (3 L of oxygen via nasal cannula) - Course Nursing assessment & vital signs reviewed: Yes EKG Interpreted by Me: RATE (98), A-fib, Left Boyers Deviation (Borderline), Other (QTc is 444. I see no acute ischemia. Computer readout says borderline ST depression in diffuse leads.) Ordered Tests: Active Orders 24 hr Category Date Time Status Stable Helper STAT Care 07/15/24 13:17 Active EKG-ER Only STAT Care 07/15/24 13:16 Active IV Insertion STAT Care 07/15/24 13:16 Active Oxygen-ED Only Nasal Cannula 3 lpm Care 07/15/24 13:36 Active Pulse Oximetry (ED) STAT Care 07/15/24 13:16 Active CHEST 1 VIEW (PORTABLE) Stat Exams 07/15/24 13:17 Completed BLOOD CULTURE Stat Lab 07/15/24 14:04 Received CBC W DIFF Stat Lab 07/15/24 13:58 Completed CMP Stat Lab 07/15/24 13:58 Completed MAGNESIUM Stat Lab 07/15/24 13:58 Completed NT PRO BNPII Stat Lab 07/15/24 13:58 Completed TROPONIN Q4H Lab 07/15/24 13:58 Completed TROPONIN Q4H Lab 07/15/24 17:30 Ordered TROPONIN Q4H Lab 07/15/24 21:30 Ordered Medication Summary Discontinued Medications Generic Name Dose Route Start Last Admin Trade Name Freq PRN Reason Stop Dose Admin Hydrocodone Bitart/Acetaminophen 10 ml 07/15/24 14:08 07/15/24 14:19 Hydrocodone/Acetaminophen 5 Ml Udcup PO 07/15/24 14:09 10 ml STAT STA Administration Hydrocodone Bitart/Acetaminophen Confirm 07/15/24 14:15 Hydrocodone/Acetaminophen 5 Ml Udcup Administered 07/15/24 14:16 Dose 10 ml .ROUTE .STK-MED ONE Methylprednisolone Sodium 0 mg 07/15/24 14:05 07/15/24 14:12 Succinate 125 mg/ Sterile IV 07/15/24 14:06 Not Given Water 2 ml STAT ONE Lab/Rad Data: Laboratory Result Diagrams 07/15/24 13:58 07/15/24 13:58 Laboratory Results 07/15/24 07/15/24 07/15/24 Range/Units 13:58 13:58 13:58 WBC (3.98-10.04) x10^3/uL RBC (3.93-5.22) x10^6/uL Hgb (11.2-15.7) g/dL Hct (34.1-44.9) % MCV (79.4-94.8) fL MCH (25.6-32.2) pg MCHC (32.2-35.5) g/dL RDW (11.7-14.4) % Plt Count (182-369) x10^3/uL MPV (9.4-12.3) fL Gran % (34.0-71.1) % Immature Gran % (Auto) (0.001-0.429) % Nucleat RBC Rel Count (0.00-0.2) % Eos # (Auto) (0.04-0.36) x10^3/uL Immature Gran # (Auto) (0.001-0.031) x10^3u/L Absolute Lymphs (auto) (1.18-3.74) x10^3/uL Absolute Monos (auto) (0.24-0.86) x10^3/uL Absolute Nucleated RBC (0.00-0.012) x10^3u/L Lymphocytes % (19.3-51.7) % Monocytes % (4.7-12.5) % Eosinophils % (0.7-5.8) % Basophils % (0.1-1.2) % Absolute Granulocytes (1.56-6.13) x10^3/uL Basophils # (0.01-0.08) x10^3/uL Sodium 134 L (135-145) mmol/L Potassium 3.9 (3.5-5.1) mmol/L Chloride 97 L (98-107) mmol/L Carbon Dioxide 25 (22-30) mmol/L Anion Gap 15.7 H (5-15) MEQ/L BUN 21 H (7-17) mg/dL Creatinine 0.88 (0.52-1.04) mg/dL Estimated GFR 67.6 ML/MIN Glucose 149 H (74-106) mg/dL Calcium 8.9 (8.4-10.2) mg/dL Magnesium 1.6 (1.6-2.3) mg/dL Total Bilirubin 1.10 (0.2-1.3) mg/dL AST 30 (14-36) U/L ALT 25 (0-35) U/L Alkaline Phosphatase 78 (38-126) U/L Troponin I < 0.012 (0.000-0.033) ng/mL NT-Pro-B Natriuret Pep 1860 (<300) pg/mL Serum Total Protein 7.3 (6.3-8.2) g/dL Albumin 4.2 (3.5-5.0) g/dL Influenza Type A Ag NEGATIVE (NEGATIVE) Influenza Type B Ag NEGATIVE (NEGATIVE) RSV (PCR) POSITIVE A (NEGATIVE) SARS-CoV-2 (PCR) NEGATIVE (NEGATIVE) 07/15/24 Range/Units 13:58 WBC 10.2 H (3.98-10.04) x10^3/uL RBC 4.90 (3.93-5.22) x10^6/uL Hgb 12.9 (11.2-15.7) g/dL Hct 42.1 (34.1-44.9) % MCV 85.9 (79.4-94.8) fL MCH 26.3 (25.6-32.2) pg MCHC 30.6 L (32.2-35.5) g/dL RDW 15.2 H (11.7-14.4) % Plt Count 262 (182-369) x10^3/uL MPV 9.8 (9.4-12.3) fL Gran % 81.6 H (34.0-71.1) % Immature Gran % (Auto) 0.5 H (0.001-0.429) % Nucleat RBC Rel Count 0.0 (0.00-0.2) % Eos # (Auto) 0.07 (0.04-0.36) x10^3/uL Immature Gran # (Auto) 0.05 H (0.001-0.031) x10^3u/L Absolute Lymphs (auto) 1.11 L (1.18-3.74) x10^3/uL Absolute Monos (auto) 0.60 (0.24-0.86) x10^3/uL Absolute Nucleated RBC 0.00 (0.00-0.012) x10^3u/L Lymphocytes % 10.9 L (19.3-51.7) % Monocytes % 5.9 (4.7-12.5) % Eosinophils % 0.7 (0.7-5.8) % Basophils % 0.4 (0.1-1.2) % Absolute Granulocytes 8.33 H (1.56-6.13) x10^3/uL Basophils # 0.04 (0.01-0.08) x10^3/uL Sodium (135-145) mmol/L Potassium (3.5-5.1) mmol/L Chloride (98-107) mmol/L Carbon Dioxide (22-30) mmol/L Anion Gap (5-15) MEQ/L BUN (7-17) mg/dL Creatinine (0.52-1.04) mg/dL Estimated GFR ML/MIN Glucose (74-106) mg/dL Calcium (8.4-10.2) mg/dL Magnesium (1.6-2.3) mg/dL Total Bilirubin (0.2-1.3) mg/dL AST (14-36) U/L ALT (0-35) U/L Alkaline Phosphatase (38-126) U/L Troponin I (0.000-0.033) ng/mL NT-Pro-B Natriuret Pep (<300) pg/mL Serum Total Protein (6.3-8.2) g/dL Albumin (3.5-5.0) g/dL Influenza Type A Ag (NEGATIVE) Influenza Type B Ag (NEGATIVE) RSV (PCR) (NEGATIVE) SARS-CoV-2 (PCR) (NEGATIVE) - Progress Progress: improved, re-examined Air Movement: fair Progress Note: 07/15/24 14:16 My medical decision making and the assignment of moderate to high complexity is based on review of the patient's past medical history, review the patient's medication list, review the patient drug allergy list, history present illness and physical findings on examination. The workup in this patient includes placement of intravenous line, and CBC, CMP, magnesium, twelve-lead EKG, BNP level, troponin level, chest x-ray, viral swabs and RT evaluation and management. Differential diagnosis includes is not limited to CHF exacerbation, COPD exacerbation, viral illness, pneumonia, myocardial infarction, arrhythmia, electrolyte abnormalities 07/15/24 14:24 The chest x-ray final report was interpreted by the radiologist and I reviewed the impression. The impression states hyperinflated, clear chest x-ray. No new or acute abnormalities. 07/15/24 16:21 I interpreted the patient's laboratory data results. Based on the laboratory data results, there are no acute, emergent medical issues other than positive RSV. This is likely the cause of her symptoms. I spoke with Dr. Pillai, the telehospitalist on-call at this time. I reviewed the patient's past medical history, presenting complaint, history present illness and physical findings on examination. I also reviewed the patient's laboratory and radiographic study results and the results of the patient to our interventions. We will place this patient in observation and have respiratory therapy provide her with breathing treatments and we will place her on steroids as well. Blood Culture(s) Obtained: Yes Antibiotics given: No Counseled pt/family regarding: lab results, diagnosis, rad results Medical Desision Making - Independent Historian Additional History obtained from: Transcript Clerk/EMT - Discussion of managment Care discussed with:: hospitalist Agreed on:: place in obs Will see patient: in hospital - Diagnostic Testing Diagnostic test were ordered, analyzed, and reviewed by me: Yes Radiological Interpretation: Reviewed by me, Teleradiologist Report - Risk of complications The pt has a high risk of morbidity or mortality based on: Decision regarding hospitilization or escalation of hosp level of care - Departure Departure Disposition: Observation Clinical Impression: Hypoxia, RSV bronchitis Condition: Fair Critical Care Time: Yes Critical Care Time(excluding separately billable procedures): Critical 30-74 mins (45) Referrals: FRANCISCO WADSWORTH [Primary Care Provider] - Follow up/PCP as directed
--- NOTE | 2024-07-15 13:53 | XRAY ---
Indication: Short of breath. Comparison: April 09, 2022 Portable apical lordotic chest again hyperinflated and now clear. Heart remains borderline enlarged. Bony thorax intact again with osteopenia and degenerative changes. No new/acute abnormalities.
[2024-07-15] MEDS: solu-MEDROL 125 MG, Sterile H2O 10 ml 2 ML IV ONE (14:12)
[2024-07-15 14:13] LABS: Absolute Neutrophil Ct (ANC) 8.33 x10^3/uL (1.56-6.13); BASOPHIL % 0.4 % (0.1-1.2); Basophil (Absolute #) 0.04 x10^3/uL (0.01-0.08); Eosinophil % 0.7 % (0.7-5.8); Eosinophil (Absolute #) 0.07 x10^3/uL (0.04-0.36); Hematocrit 42.1 % (34.1-44.9); Hemoglobin 12.9 g/dL (11.2-15.7); IMMATURE GRAN # 0.05 x10^3u/L (0.001-0.031); IMMATURE GRAN % 0.5 % (0.001-0.429); Lymphocyte (Absolute #) 1.11 x10^3/uL (1.18-3.74); Lymphocytes % 10.9 % (19.3-51.7); Mean Cell Volume 85.9 fL (79.4-94.8); Mean Corpuscular Hemoglobin 26.3 pg (25.6-32.2); Mean Corpuscular Hgb Concent. 30.6 g/dL (32.2-35.5); Mean Platelet Volume 9.8 fL (9.4-12.3); Monocytes % 5.9 % (4.7-12.5); Neutrophil % 81.6 % (34.0-71.1); Platelet Count 262 x10^3/uL (182-369); Red Cell Distribution Width 15.2 % (11.7-14.4); White Blood Count 10.2 x10^3/uL (3.98-10.04)
[2024-07-15] MEDS ORDERED: HYDROCODONE-ACETAMIN 2.5-108/5 ML SOLUTION ONE (14:15)
[2024-07-15] MEDS: HYDROCODONE-ACETAMIN 2.5-108/5 ML SOLUTION PO STA (14:19)
[2024-07-15 14:40] LABS: ALBUMIN 4.2 g/dL (3.5-5.0); ANION GAP 15.7 MEQ/L (5-15); BILIRUBIN,TOTAL 1.1 mg/dL (0.2-1.3); Calcium 8.9 mg/dL (8.4-10.2); Creatinine 1 0.88 mg/dL (0.52-1.04); EST GLOMERULAR FILTRATION RATE 67.6 ML/MIN; MAGNESIUM 1.6 mg/dL (1.6-2.3); Potassium 3.9 mmol/L (3.5-5.1); Total Protein 7.3 g/dL (6.3-8.2)
[2024-07-15 14:57] LABS: INFLUENZA A NEGATIVE (NEGATIVE); INFLUENZA B NEGATIVE (NEGATIVE); SARS-CoV-2 Xpert Express NEGATIVE (NEGATIVE)
[2024-07-15 14:58] LABS: RESPIRATORY SYNCTIAL VIRUS POSITIVE (NEGATIVE)
[2024-07-15] MEDS ORDERED: Zofran 4 MG/2 ML VIAL IV PRN (17:24)
[2024-07-15] MEDS ORDERED: TYLENOL 325 MG PO PRN (17:24)
--- NOTE | 2024-07-15 17:29 | PCM.HP ---
History of Present Illness - Chief Complaint Chief Complaint: RSV Date: 07/15/24 History of Present Illness: is a 79 year old female with pmhx of morbid obesity, atrial fibrillation on Eliquis, COPD, hypothyroidism, hyperlipidemia, and hypertension. She arrived to the ER for sxs of shortness of breath, hypoxia (O2 sats on room air in the 70s), productive cough of yellowish sputum. Patient has not been feeling well over the last few days. She took her great grandson to school today and during the transport, she suddenly began coughing and having significant shortness of breath requiring her to call the paramedics. On arrival, the paramedics provided the patient with a DuoNeb, found her oxygen saturation level to be 70s and placed her on 2 L of oxygen via nasal cannula, provided her with 125 mg of Solu-Medrol. Patient was transported with her oxygen saturation level on 2 L oxygen in the 91 to 92% range. She does not wear oxygen at home. WBC 10.2. RSV test + in ER. She was given noco for pain and steroids. She remains on 2lNC @ 96%. - Review of Systems Constitutional: No Fever, No Chills Eyes: No Symptoms Ears, Nose, & Throat: No Symptoms Respiratory: Short Of Breath, Wheezing, No Cough Cardiac: Edema (+3 pitting), No Chest Pain, No Syncope Abdominal/Gastrointestinal: No Abdominal Pain, No Nausea, No Vomiting, No Diarrhea Genitourinary Symptoms: No Dysuria Musculoskeletal: No Back Pain, No Neck Pain Skin: No Rash Neurological: No Dizziness, No Focal Weakness, No Sensory Changes Psychological: No Symptoms Endocrine: No Symptoms Hematologic/Lymphatic: No Symptoms Immunological/Allergic: No Symptoms Medications & Allergies Home Medications: Home Medication List Amlodipine Besylate 5 mg PO HS 10/21/16 [History Confirmed 07/15/24] Pravastatin Sodium 40 mg PO HS 10/21/16 [History Confirmed 07/15/24] Apixaban [Eliquis] 5 mg PO BID 07/15/24 [History Confirmed 07/15/24] Carvedilol 12.5 mg [Coreg 12.5 mg] 12.5 mg PO BID 07/15/24 [History Confirmed 07/15/24] Furosemide 20 mg [Lasix 20 mg] 20 mg PO DAILY 07/15/24 [History Confirmed 07/15/24] Levothyroxine Sodium 75 Mcg [Synthroid 75 Mcg] 75 mcg PO DAILY 07/15/24 [History Confirmed 07/15/24] Spironolactone 25 mg [Aldactone 25 MG] 25 mg PO DAILY 07/15/24 [History Confirmed 07/15/24] Allergies/Adverse Reactions: Allergies Allergy/AdvReac Type Severity Reaction Status Date / Time Penicillins Allergy Severe stops Verified 07/15/24 17:29 breathing - Past Medical History Past Medical History: Yes Neurological History: No Pertinent History ENT History: No Pertinent History Cardiac History: Hypertension, Other Respiratory History: Asthma, Bronchitis, COPD Endocrine Medical History: Hypothyroidism Musculoskelatal History: Arthritis GI Medical History: Colitis History: No Pertinent History Pyscho-Social History: No Pertinent History Reproductive Disorders: Other Comment: leaky valve, polyps removed from uterus - Past Surgical History Past Surgical History: Yes Neuro Surgical History: No Pertinent History Cardiac History: No Pertinent History Respiratory Surgery: No Pertinent History, Other GI Surgical History: No Pertinent History Genitourinary Surgical Hx: No Pertinent History Musculskeletal Surgical Hx: Joint Replacement Female Surgical History: Other Other Surgical History: carpal tunnel both hands and left foot surgery for arthiritis with stainless steel rolando, total knee replacement bilaterally, - Social History Smoking Status: Never smoker Exposure to second hand smoke: No Alcohol: None Drug Use: none - Social Determinants of Health Will the patient participate in the screening: Yes Do you worry about a steady place to live?: No Do you have any problems with any of the following?: No known problems In the past 12 months,have you had to go without utilities?: No Have you or anyone in your house had to go without enough: No Transportation Issues: No Has anyone in your support network made you feel unsafe?: No - Physical Exam Vital Signs: Vital Signs - 24 hr Temp Pulse Resp BP BP Pulse Ox 07/15/24 17:00 83 24 130/84 07/15/24 16:30 77 30 H 144/86 96 07/15/24 16:00 83 19 117/78 92 L 07/15/24 15:30 79 21 131/69 93 L 07/15/24 15:00 80 20 138/88 94 L 07/15/24 14:31 91 H 29 H 138/98 93 L 07/15/24 14:20 101 H 25 H 90 L 07/15/24 14:10 97 H 18 95 07/15/24 13:30 81 22 149/71 95 07/15/24 13:16 92 L 07/15/24 13:15 85 24 154/102 94 L 07/15/24 13:09 97.6 F 117 H 30 H 154/102 92 L General Appearance: no apparent distress, alert, obese Neurologic Exam: alert, oriented x 3, cooperative, normal mood/affect, nml cerebellar function, nml station & gait, sensation nml, No motor deficits Eye Exam: PERRL/EOMI, eyes nml inspection Ears, Nose, Throat Exam: normal ENT inspection, TMs normal, pharynx normal, moist mucous membranes Neck Exam: normal inspection, non-tender, supple, full range of motion Respiratory Exam: normal breath sounds, lungs clear, No respiratory distress Cardiovascular Exam: regular rate/rhythm, normal heart sounds, normal peripheral pulses, edema (BLLE + 3) Gastrointestinal/Abdomen Exam: soft, normal bowel sounds, No tenderness, No mass Back Exam: normal inspection, normal range of motion, No CVA tenderness, No vertebral tenderness Extremity Exam: normal inspection, normal range of motion, pelvis stable Skin Exam: normal color, warm, dry, No rash Lymphatic Exam: No adenopathy Results - Labs Lab/Micro Results: Lab Results-Last 24 Hours 07/15/24 07/15/24 07/15/24 Range/Units 13:58 13:58 13:58 WBC 10.2 H (3.98-10.04) x10^3/uL RBC 4.90 (3.93-5.22) x10^6/uL Hgb 12.9 (11.2-15.7) g/dL Hct 42.1 (34.1-44.9) % MCV 85.9 (79.4-94.8) fL MCH 26.3 (25.6-32.2) pg MCHC 30.6 L (32.2-35.5) g/dL RDW 15.2 H (11.7-14.4) % Plt Count 262 (182-369) x10^3/uL MPV 9.8 (9.4-12.3) fL Gran % 81.6 H (34.0-71.1) % Immature Gran % (Auto) 0.5 H (0.001-0.429) % Nucleat RBC Rel Count 0.0 (0.00-0.2) % Eos # (Auto) 0.07 (0.04-0.36) x10^3/uL Immature Gran # (Auto) 0.05 H (0.001-0.031) x10^3u/L Absolute Lymphs (auto) 1.11 L (1.18-3.74) x10^3/uL Absolute Monos (auto) 0.60 (0.24-0.86) x10^3/uL Absolute Nucleated RBC 0.00 (0.00-0.012) x10^3u/L Lymphocytes % 10.9 L (19.3-51.7) % Monocytes % 5.9 (4.7-12.5) % Eosinophils % 0.7 (0.7-5.8) % Basophils % 0.4 (0.1-1.2) % Absolute Granulocytes 8.33 H (1.56-6.13) x10^3/uL Basophils # 0.04 (0.01-0.08) x10^3/uL Sodium 134 L (135-145) mmol/L Potassium 3.9 (3.5-5.1) mmol/L Chloride 97 L (98-107) mmol/L Carbon Dioxide 25 (22-30) mmol/L Anion Gap 15.7 H (5-15) MEQ/L BUN 21 H (7-17) mg/dL Creatinine 0.88 (0.52-1.04) mg/dL Estimated GFR 67.6 ML/MIN Glucose 149 H (74-106) mg/dL Calcium 8.9 (8.4-10.2) mg/dL Magnesium 1.6 (1.6-2.3) mg/dL Total Bilirubin 1.10 (0.2-1.3) mg/dL AST 30 (14-36) U/L ALT 25 (0-35) U/L Alkaline Phosphatase 78 (38-126) U/L Troponin I < 0.012 (0.000-0.033) ng/mL NT-Pro-B Natriuret Pep 1860 (<300) pg/mL Serum Total Protein 7.3 (6.3-8.2) g/dL Albumin 4.2 (3.5-5.0) g/dL Influenza Type A Ag (NEGATIVE) Influenza Type B Ag (NEGATIVE) RSV (PCR) (NEGATIVE) SARS-CoV-2 (PCR) (NEGATIVE) 07/15/24 Range/Units 13:58 WBC (3.98-10.04) x10^3/uL RBC (3.93-5.22) x10^6/uL Hgb (11.2-15.7) g/dL Hct (34.1-44.9) % MCV (79.4-94.8) fL MCH (25.6-32.2) pg MCHC (32.2-35.5) g/dL RDW (11.7-14.4) % Plt Count (182-369) x10^3/uL MPV (9.4-12.3) fL Gran % (34.0-71.1) % Immature Gran % (Auto) (0.001-0.429) % Nucleat RBC Rel Count (0.00-0.2) % Eos # (Auto) (0.04-0.36) x10^3/uL Immature Gran # (Auto) (0.001-0.031) x10^3u/L Absolute Lymphs (auto) (1.18-3.74) x10^3/uL Absolute Monos (auto) (0.24-0.86) x10^3/uL Absolute Nucleated RBC (0.00-0.012) x10^3u/L Lymphocytes % (19.3-51.7) % Monocytes % (4.7-12.5) % Eosinophils % (0.7-5.8) % Basophils % (0.1-1.2) % Absolute Granulocytes (1.56-6.13) x10^3/uL Basophils # (0.01-0.08) x10^3/uL Sodium (135-145) mmol/L Potassium (3.5-5.1) mmol/L Chloride (98-107) mmol/L Carbon Dioxide (22-30) mmol/L Anion Gap (5-15) MEQ/L BUN (7-17) mg/dL Creatinine (0.52-1.04) mg/dL Estimated GFR ML/MIN Glucose (74-106) mg/dL Calcium (8.4-10.2) mg/dL Magnesium (1.6-2.3) mg/dL Total Bilirubin (0.2-1.3) mg/dL AST (14-36) U/L ALT (0-35) U/L Alkaline Phosphatase (38-126) U/L Troponin I (0.000-0.033) ng/mL NT-Pro-B Natriuret Pep (<300) pg/mL Serum Total Protein (6.3-8.2) g/dL Albumin (3.5-5.0) g/dL Influenza Type A Ag NEGATIVE (NEGATIVE) Influenza Type B Ag NEGATIVE (NEGATIVE) RSV (PCR) POSITIVE A (NEGATIVE) SARS-CoV-2 (PCR) NEGATIVE (NEGATIVE) - Radiology Impressions Radiology Exams & Impressions: Radiology Procedures Category Date Time Status CHEST 1 VIEW (PORTABLE) Stat Exams 07/15/24 13:17 Completed Assessment/Plan (1) RSV bronchitis Current Visit: Yes Status: Acute Assessment & Plan: - CXR: Portable apical lordotic chest again hyperinflated and now clear. Heart remains borderline enlarged. Bony thorax intact again with osteopenia and degenerative changes. No new/acute abnormalities. - CBC, CMP reviewed - + RSV test in ER - supportive care - 2lNC 96%- Wean- baseline RA - RT eval and treat. - tessalon TID PRN cough - Tylenol - antiemetic Code(s): J20.5 - ACUTE BRONCHITIS DUE TO RESPIRATORY SYNCYTIAL VIRUS (2) COPD exacerbation Current Visit: Yes Status: Acute Assessment & Plan: - Steroids gave in ER- continue - xoponex - O2 2lNC 96%- BL RA - 2:2 RSV Code(s): J44.1 - CHRONIC OBSTRUCTIVE PULMONARY DISEASE W (ACUTE) EXACERBATION (3) HTN (hypertension) Current Visit: No Status: Chronic Qualifiers: Hypertension type: primary hypertension Qualified Code(s): I10 - Essential (primary) hypertension Assessment & Plan: - BP stable continue home meds Code(s): I10 - ESSENTIAL (PRIMARY) HYPERTENSION (4) Hypothyroidism Current Visit: Yes Status: Chronic Assessment & Plan: - Continue Synthroid Code(s): E03.9 - HYPOTHYROIDISM, UNSPECIFIED (5) Hyperlipidemia Current Visit: Yes Status: Chronic Assessment & Plan: - Continue statin Code(s): E78.5 - HYPERLIPIDEMIA, UNSPECIFIED (6) Atrial fibrillation Current Visit: No Status: Chronic Qualifiers: Atrial fibrillation type: unspecified Qualified Code(s): I48.91 - Unspecified atrial fibrillation Assessment & Plan: - Continue Eliquis - Tele Code(s): I48.91 - UNSPECIFIED ATRIAL FIBRILLATION (7) CHF (congestive heart failure) Current Visit: Yes Status: Chronic Qualifiers: Heart failure chronicity: chronic Assessment & Plan: - TEDS - BNP 1860 - CXR does not show acute exacerbation - Continue home meds - Echo 04/08/22: IMPRESSION: 1) NO DEFINITE REGIONAL WALL MOTION ABNORMALITY. ESTIMATED GLOBAL LEFT VENTRICULAR EJECTION FRACTION BETWEEN 50 TO 55%. 2) MILD MITRAL REGURGITATION. 3) MILD AORTIC REGURGITATION. 4) MILD TO MODERATE TRICUSPID REGURGITATION. RIGHT VENTRICULAR SYSTOLIC PRESSURE OF 42 MM OF MERCURY. 5) MILDLY DILATED RIGHT SIDE CHAMBERS. 6) LEFT VENTRICLE DIASTOLIC DYSFUNCTION Code(s): I50.9 - HEART FAILURE, UNSPECIFIED (8) Morbid obesity with BMI of 45.0-49.9, adult Current Visit: Yes Status: Chronic Assessment & Plan: - Advised diet and exercise control VTE: Eliquis PPI: Next of KIN: Mervat Calix D/C plan: 1-2 days Code status: Full Code(s): E66.01 - MORBID (SEVERE) OBESITY DUE TO EXCESS CALORIES; Z68.42 - BODY MASS INDEX [BMI] 45.0-49.9, ADULT Telemedicine Encounter - Telemedicine Encounter Telemedicine Encounter: "The entirety of this encounter was performed via Telemedicine" This visit was performed using real-time audio and video connection between my location and thepatients locationwith the assistance of a surrogateat the patients location. Written or verbal consent was obtained from the patient/guardian to perform this visit [facility]. Any patient questions regarding the telemedicine interaction were answered.
[2024-07-15] MEDS ORDERED: Xopenex 1.25 MG/0.5 ML UD NEBULE IH PRN (17:36)
[2024-07-15] MEDS ORDERED: Tessalon Perles 100 MG PO PRN (17:44)
[2024-07-15] MEDS: DUONEB 0.5-3 MG/3 ml Neb IH SCH (19:19)
[2024-07-15] MEDS: Sodium Chloride 0.9% 1000 ML 1,000 ML IV SCH (20:01)
[2024-07-15] MEDS ORDERED: solu-MEDROL ONE (21:23)
[2024-07-15] MEDS ORDERED: Sterile H2O 10 ml IJ ONE (21:23)
[2024-07-15] MEDS: solu-MEDROL 20 MG, Sterile H2O 10 ml 1 ML IV SCH (21:27)
[2024-07-15] MEDS: COREG 12.5 MG PO SCH (21:27)
[2024-07-15] MEDS: ELIQUIS 2.5 MG TABLET PO SCH (21:27)
[2024-07-15] MEDS: ZOCOR 20MG PO SCH (21:27)
[2024-07-15] MEDS: NORVASC 5 MG PO SCH (21:27)
[2024-07-15] MEDS ORDERED: NON-FORMULARY ITEM (Apixaban [Eliquis] 5 MG Tablet) PO SCH (22:00)
[2024-07-15] MEDS ORDERED: solu-MEDROL 80 MG, Sterile H2O 10 ml 2 ML IV SCH (22:00)
[2024-07-15] MEDS ORDERED: NON-FORMULARY ITEM (Pravastatin Sodium [Pravastatin Sodium] 40 MG Tablet) PO SCH (22:00)
[2024-07-16 03:30] LABS: Absolute Neutrophil Ct (ANC) 7.77 x10^3/uL (1.56-6.13); Basophil (Absolute #) 0 x10^3/uL (0.01-0.08); Eosinophil (Absolute #) 0 x10^3/uL (0.04-0.36); Hemoglobin 12.2 g/dL (11.2-15.7); IMMATURE GRAN # 0.05 x10^3u/L (0.001-0.031); IMMATURE GRAN % 0.6 % (0.001-0.429); Lymphocyte (Absolute #) 0.72 x10^3/uL (1.18-3.74); Lymphocytes % 8.3 % (19.3-51.7); Mean Cell Volume 83.2 fL (79.4-94.8); Mean Corpuscular Hemoglobin 26.7 pg (25.6-32.2); Mean Corpuscular Hgb Concent. 32.1 g/dL (32.2-35.5); Mean Platelet Volume 9.7 fL (9.4-12.3); Monocyte (Absolute #) 0.13 x10^3/uL (0.24-0.86); Monocytes % 1.5 % (4.7-12.5); Neutrophil % 89.6 % (34.0-71.1); Platelet Count 298 x10^3/uL (182-369); Red Blood Count 4.57 x10^6/uL (3.93-5.22); White Blood Count 8.7 x10^3/uL (3.98-10.04)
[2024-07-16 03:53] LABS: ALBUMIN 3.4 g/dL (3.5-5.0); ANION GAP 14.1 MEQ/L (5-15); BILIRUBIN,TOTAL 0.7 mg/dL (0.2-1.3); Calcium 8.6 mg/dL (8.4-10.2); Creatinine 1 0.81 mg/dL (0.52-1.04); EST GLOMERULAR FILTRATION RATE 74.7 ML/MIN; Potassium 4.1 mmol/L (3.5-5.1); Total Protein 6.2 g/dL (6.3-8.2)
[2024-07-16] MEDS: ECOTRIN 81 MG PO ONE (04:24)
[2024-07-16] MEDS ORDERED: Sodium Chloride 3 ML UD NEBULES IH PRN (07:09)
[2024-07-16] MEDS: SYNTHROID 75 MCG PO SCH (10:05)
[2024-07-16] MEDS: LASIX 20 MG PO SCH (10:06)
[2024-07-16] MEDS: Aldactone 25 MG PO SCH (10:06)
[2024-07-16] MEDS: Protonix 20MG Tablet PO SCH (10:07)
--- NOTE | 2024-07-16 13:14 | PCM.DS ---
Discharge Summary Date of Admission: 07/15/24 17:23 Date of Discharge: 07/14/24 Admitting Physician: TIALO BLANCAS MD Consults: Consults on Case 07/16/24 07:31 Consult Cardiology ROUTINE Primary Care Provider: FRANCISCO GHOTRA Allergies Allergies Penicillins Allergy (Severe, Verified 07/15/24 17:29) stops breathing Hospital Summary - Hospital Course Hospital Course: 07/15/24 is a 79 year old female with pmhx of morbid obesity, atrial fibrillation on Eliquis, COPD, hypothyroidism, hyperlipidemia, and hypertension. She arrived to the ER for sxs of shortness of breath, hypoxia (O2 sats on room air in the 70s), productive cough of yellowish sputum. Patient has not been feeling well over the last few days. She took her great grandson to school today and during the transport, she suddenly began coughing and having significant shortness of breath requiring her to call the paramedics. On arrival, the paramedics provided the patient with a DuoNeb, found her oxygen saturation level to be 70s and placed her on 2 L of oxygen via nasal cannula, provided her with 125 mg of Solu-Medrol. Patient was transported with her oxygen saturation level on 2 L oxygen in the 91 to 92% range. She does not wear oxygen at home. WBC 10.2. RSV test + in ER. She was given noco for pain and steroids. She remains on 2lNC @ 96%. 07/16/24 Pt sitting up in bed. She states she feels much better and is ready to d/c today. Trops rasied overnight and cardiology consulted. Likely demand ischemia 2;2 hypoxia. She remains on 3L NC and RT to wean O2 as baseline room air. Lung sounds are clear today. She denies CP, SOB, abd. pain N/V/D. Pt weaned off of oxygen and now room air 92%. - Vitals & Intake/Output Vital Signs: Vital Signs Temperature 97.7 F 07/16/24 12:00 Pulse Rate 90 07/16/24 12:00 Respiratory Rate 16 07/16/24 12:00 Blood Pressure 149/81 07/16/24 12:00 O2 Sat by Pulse Oximetry 93 L 07/16/24 12:00 Intake & Output: Intake & Output 07/14/24 07/15/24 07/16/2407/17/25 11:59 11:59 11:59 11:59 Intake Total 720 Output Total 200 Balance 520 Weight 116.9 kg - Lab Result Diagrams: 07/16/24 03:10 07/16/24 03:10 Lab Results-Last 24 Hrs: Lab Results-Last 24 Hours 07/15/24 07/15/24 07/15/24 Range/Units 13:58 13:58 13:58 WBC 10.2 H (3.98-10.04) x10^3/uL RBC 4.90 (3.93-5.22) x10^6/uL Hgb 12.9 (11.2-15.7) g/dL Hct 42.1 (34.1-44.9) % MCV 85.9 (79.4-94.8) fL MCH 26.3 (25.6-32.2) pg MCHC 30.6 L (32.2-35.5) g/dL RDW 15.2 H (11.7-14.4) % Plt Count 262 (182-369) x10^3/uL MPV 9.8 (9.4-12.3) fL Gran % 81.6 H (34.0-71.1) % Immature Gran % (Auto) 0.5 H (0.001-0.429) % Nucleat RBC Rel Count 0.0 (0.00-0.2) % Eos # (Auto) 0.07 (0.04-0.36) x10^3/uL Immature Gran # (Auto) 0.05 H (0.001-0.031) x10^3u/L Absolute Lymphs (auto) 1.11 L (1.18-3.74) x10^3/uL Absolute Monos (auto) 0.60 (0.24-0.86) x10^3/uL Absolute Nucleated RBC 0.00 (0.00-0.012) x10^3u/L Lymphocytes % 10.9 L (19.3-51.7) % Monocytes % 5.9 (4.7-12.5) % Eosinophils % 0.7 (0.7-5.8) % Basophils % 0.4 (0.1-1.2) % Absolute Granulocytes 8.33 H (1.56-6.13) x10^3/uL Basophils # 0.04 (0.01-0.08) x10^3/uL Sodium 134 L (135-145) mmol/L Potassium 3.9 (3.5-5.1) mmol/L Chloride 97 L (98-107) mmol/L Carbon Dioxide 25 (22-30) mmol/L Anion Gap 15.7 H (5-15) MEQ/L BUN 21 H (7-17) mg/dL Creatinine 0.88 (0.52-1.04) mg/dL Estimated GFR 67.6 ML/MIN Glucose 149 H (74-106) mg/dL Calcium 8.9 (8.4-10.2) mg/dL Magnesium 1.6 (1.6-2.3) mg/dL Total Bilirubin 1.10 (0.2-1.3) mg/dL AST 30 (14-36) U/L ALT 25 (0-35) U/L Alkaline Phosphatase 78 (38-126) U/L Troponin I < 0.012 (0.000-0.033) ng/mL NT-Pro-B Natriuret Pep 1860 (<300) pg/mL Serum Total Protein 7.3 (6.3-8.2) g/dL Albumin 4.2 (3.5-5.0) g/dL Influenza Type A Ag (NEGATIVE) Influenza Type B Ag (NEGATIVE) RSV (PCR) (NEGATIVE) SARS-CoV-2 (PCR) (NEGATIVE) 07/15/24 07/15/24 07/15/24 Range/Units 13:58 17:06 21:15 WBC (3.98-10.04) x10^3/uL RBC (3.93-5.22) x10^6/uL Hgb (11.2-15.7) g/dL Hct (34.1-44.9) % MCV (79.4-94.8) fL MCH (25.6-32.2) pg MCHC (32.2-35.5) g/dL RDW (11.7-14.4) % Plt Count (182-369) x10^3/uL MPV (9.4-12.3) fL Gran % (34.0-71.1) % Immature Gran % (Auto) (0.001-0.429) % Nucleat RBC Rel Count (0.00-0.2) % Eos # (Auto) (0.04-0.36) x10^3/uL Immature Gran # (Auto) (0.001-0.031) x10^3u/L Absolute Lymphs (auto) (1.18-3.74) x10^3/uL Absolute Monos (auto) (0.24-0.86) x10^3/uL Absolute Nucleated RBC (0.00-0.012) x10^3u/L Lymphocytes % (19.3-51.7) % Monocytes % (4.7-12.5) % Eosinophils % (0.7-5.8) % Basophils % (0.1-1.2) % Absolute Granulocytes (1.56-6.13) x10^3/uL Basophils # (0.01-0.08) x10^3/uL Sodium (135-145) mmol/L Potassium (3.5-5.1) mmol/L Chloride (98-107) mmol/L Carbon Dioxide (22-30) mmol/L Anion Gap (5-15) MEQ/L BUN (7-17) mg/dL Creatinine (0.52-1.04) mg/dL Estimated GFR ML/MIN Glucose (74-106) mg/dL Calcium (8.4-10.2) mg/dL Magnesium (1.6-2.3) mg/dL Total Bilirubin (0.2-1.3) mg/dL AST (14-36) U/L ALT (0-35) U/L Alkaline Phosphatase (38-126) U/L Troponin I 0.062 H* 0.079 H* (0.000-0.033) ng/mL NT-Pro-B Natriuret Pep (<300) pg/mL Serum Total Protein (6.3-8.2) g/dL Albumin (3.5-5.0) g/dL Influenza Type A Ag NEGATIVE (NEGATIVE) Influenza Type B Ag NEGATIVE (NEGATIVE) RSV (PCR) POSITIVE A (NEGATIVE) SARS-CoV-2 (PCR) NEGATIVE (NEGATIVE) 07/16/24 07/16/24 07/16/24 Range/Units 03:10 03:10 03:10 WBC 8.7 (3.98-10.04) x10^3/uL RBC 4.57 (3.93-5.22) x10^6/uL Hgb 12.2 (11.2-15.7) g/dL Hct 38.0 (34.1-44.9) % MCV 83.2 (79.4-94.8) fL MCH 26.7 (25.6-32.2) pg MCHC 32.1 L (32.2-35.5) g/dL RDW 15.0 H (11.7-14.4) % Plt Count 298 (182-369) x10^3/uL MPV 9.7 (9.4-12.3) fL Gran % 89.6 H (34.0-71.1) % Immature Gran % (Auto) 0.6 H (0.001-0.429) % Nucleat RBC Rel Count 0.0 (0.00-0.2) % Eos # (Auto) 0 L (0.04-0.36) x10^3/uL Immature Gran # (Auto) 0.05 H (0.001-0.031) x10^3u/L Absolute Lymphs (auto) 0.72 L (1.18-3.74) x10^3/uL Absolute Monos (auto) 0.13 L (0.24-0.86) x10^3/uL Absolute Nucleated RBC 0.00 (0.00-0.012) x10^3u/L Lymphocytes % 8.3 L (19.3-51.7) % Monocytes % 1.5 L (4.7-12.5) % Eosinophils % 0.0 L (0.7-5.8) % Basophils % 0.0 L (0.1-1.2) % Absolute Granulocytes 7.77 H (1.56-6.13) x10^3/uL Basophils # 0 L (0.01-0.08) x10^3/uL Sodium 132 L (135-145) mmol/L Potassium 4.1 (3.5-5.1) mmol/L Chloride 97 L (98-107) mmol/L Carbon Dioxide 26 (22-30) mmol/L Anion Gap 14.1 (5-15) MEQ/L BUN 23 H (7-17) mg/dL Creatinine 0.81 (0.52-1.04) mg/dL Estimated GFR 74.7 ML/MIN Glucose 170 H (74-106) mg/dL Calcium 8.6 (8.4-10.2) mg/dL Magnesium (1.6-2.3) mg/dL Total Bilirubin 0.70 (0.2-1.3) mg/dL AST 24 (14-36) U/L ALT 22 (0-35) U/L Alkaline Phosphatase 70 (38-126) U/L Troponin I 0.086 H* (0.000-0.033) ng/mL NT-Pro-B Natriuret Pep 3950 (<300) pg/mL Serum Total Protein 6.2 L (6.3-8.2) g/dL Albumin 3.4 L (3.5-5.0) g/dL Influenza Type A Ag (NEGATIVE) Influenza Type B Ag (NEGATIVE) RSV (PCR) (NEGATIVE) SARS-CoV-2 (PCR) (NEGATIVE) - Radiology Exams Ordered Rad Exams-Entire Visit: Radiology Procedures Category Date Time Status CHEST 1 VIEW (PORTABLE) Stat Exams 07/15/24 13:17 Completed - Procedures and Test Procedures and Tests throughout Hospitalization: Therapy Orders & Screens 07/15/24 17:24 Oxygen Nasal Cannula 2 lpm Comment: Respiratory Therapy Consult DAILY Comment: Reason For Exam: 07/15/24 17:34 RT Miscellaneous Order ROUTINE Comment: Physician Instructions: baseline RA Reason For Exam: Wean O2 keep > 92% Diagnosis: RSV 07/15/24 19:20 Respiratory Therapy Assessment DAILY Comment: Diagnosis: RSV 07/16/24 07:31 EKG ROUTINE Comment: Diagnosis: RSV Discharge Exam General Appearance: no apparent distress, alert, obese Neurologic Exam: alert, oriented x 3, cooperative, normal mood/affect, nml cerebellar function, sensation nml, No motor deficits Eye Exam: PERRL, EOMI, eyes nml inspection Ears, Nose, Throat Exam: normal ENT inspection, pharynx normal, moist mucous membranes Neck Exam: normal inspection, non-tender, supple, full range of motion Respiratory Exam: normal breath sounds, lungs clear, No respiratory distress Cardiovascular Exam: regular rate/rhythm, normal heart sounds Gastrointestinal/Abdomen Exam: soft, No tenderness, No mass Pelvic Exam: deferred Rectal Exam: deferred Back Exam: normal inspection, normal range of motion, No CVA tenderness, No vertebral tenderness Extremity Exam: normal inspection, normal range of motion Skin Exam: normal color, warm, dry Final Diagnosis/Problem List - Final Discharge Diagnosis/Problem (1) RSV bronchitis Current Visit: Yes Status: Acute Code(s): J20.5 - ACUTE BRONCHITIS DUE TO RESPIRATORY SYNCYTIAL VIRUS (2) COPD exacerbation Current Visit: Yes Status: Acute Code(s): J44.1 - CHRONIC OBSTRUCTIVE PULMONARY DISEASE W (ACUTE) EXACERBATION (3) HTN (hypertension) Current Visit: No Status: Chronic Code(s): I10 - ESSENTIAL (PRIMARY) HYPERTENSION (4) Hypothyroidism Current Visit: Yes Status: Chronic Code(s): E03.9 - HYPOTHYROIDISM, UNSPECIFIED (5) Hyperlipidemia Current Visit: Yes Status: Chronic Code(s): E78.5 - HYPERLIPIDEMIA, UNSPECIFIED (6) Atrial fibrillation Current Visit: No Status: Chronic Code(s): I48.91 - UNSPECIFIED ATRIAL FIBRILLATION (7) CHF (congestive heart failure) Current Visit: Yes Status: Chronic Code(s): I50.9 - HEART FAILURE, UNSPECI FIED (8) Morbid obesity with BMI of 45.0-49.9, adult Current Visit: Yes Status: Chronic Assessment & Plan: (1) RSV bronchitis Current Visit: Yes Status: Acute Assessment & Plan: - CXR: Portable apical lordotic chest again hyperinflated and now clear. Heart remains borderline enlarged. Bony thorax intact again with osteopenia and degenerative changes. No new/acute abnormalities. - CBC, CMP reviewed - + RSV test in ER - supportive care - 2lNC 96%- Wean- baseline RA - RT eval and treat. - tessalon TID PRN cough - Tylenol - antiemetic 07/16 - 3lNC 92 %- Pt weaned off O2 and now RA 92% - RT to wean O2 - WBC 8.7 Code(s): J20.5 - ACUTE BRONCHITIS DUE TO RESPIRATORY SYNCYTIAL VIRUS (2) COPD exacerbation Current Visit: Yes Status: Acute Assessment & Plan: - Steroids gave in ER- continue - Xoponex breathing treatments - O2 2lNC 96%- BL RA - 2:2 RSV Code(s): J44.1 - CHRONIC OBSTRUCTIVE PULMONARY DISEASE W (ACUTE) EXACERBATION (3) HTN (hypertension) Current Visit: No Status: Chronic Qualifiers: Hypertension type: primary hypertension Qualified Code(s): I10 - Essential (primary) hypertension Assessment & Plan: - BP stable continue home meds Code(s): I10 - ESSENTIAL (PRIMARY) HYPERTENSION (4) Hypothyroidism Current Visit: Yes Status: Chronic Assessment & Plan: - Continue Synthroid Code(s): E03.9 - HYPOTHYROIDISM, UNSPECIFIED (5) Hyperlipidemia Current Visit: Yes Status: Chronic Assessment & Plan: - Continue statin Code(s): E78.5 - HYPERLIPIDEMIA, UNSPECIFIED (6) Atrial fibrillation Current Visit: No Status: Chronic Qualifiers: Atrial fibrillation type: unspecified Qualified Code(s): I48.91 - Unspecified atrial fibrillation Assessment & Plan: - Continue Eliquis - Tele Code(s): I48.91 - UNSPECIFIED ATRIAL FIBRILLATION (7) CHF (congestive heart failure) Current Visit: Yes Status: Chronic Qualifiers: Heart failure chronicity: chronic Assessment & Plan: - TEDS - BNP 1860 - CXR does not show acute exacerbation - Continue home meds - Echo 04/08/22: IMPRESSION: 1) NO DEFINITE REGIONAL WALL MOTION ABNORMALITY. ESTIMATED GLOBAL LEFT VENTRICULAR EJECTION FRACTION BETWEEN 50 TO 55%. 2) MILD MITRAL REGURGITATION. 3) MILD AORTIC REGURGITATION. 4) MILD TO MODERATE TRICUSPID REGURGITATION. RIGHT VENTRICULAR SYSTOLIC PRESSURE OF 42 MM OF MERCURY. 5) MILDLY DILATED RIGHT SIDE CHAMBERS. 6) LEFT VENTRICLE DIASTOLIC DYSFUNCTION Code(s): I50.9 - HEART FAILURE, UNSPECIFIED (8) Morbid obesity with BMI of 45.0-49.9, adult Current Visit: Yes Status: Chronic Assessment & Plan: - Advised diet and exercise control Code(s): E66.01 - MORBID (SEVERE) OBESITY DUE TO EXCESS CALORIES; Z68.42 - BODY MASS INDEX [BMI] 45.0-49.9, ADULT (9) Elevated troponin I measurement Current Visit: Yes Status: Acute Assessment & Plan: - 0.012, 0.062, 0.079 - cardiology consult- if ok with cards can d/c today - ASA 81mg Code(s): R79.89 - OTHER SPECIFIED ABNORMAL FINDINGS OF BLOOD CHEMISTRY - Discharge Discharge Date: 07/16/24 Disposition: Home, Self-Care Condition: Fair Prescriptions: New Prednisone 20 mg [Deltasone 20 mg] 20 mg PO BID 5 Days #10 tablet Albuterol Sulfate [Albuterol Sulfate Hfa] 8.5 gm IH Q6HPRN PRN 30 Days #1 inhaler PRN Reason: Shortness Of Breath/Wheezing Continue Pravastatin Sodium 40 mg PO HS Amlodipine Besylate 5 mg PO HS Furosemide 20 mg [Lasix 20 mg] 20 mg PO DAILY Carvedilol 12.5 mg [Coreg 12.5 mg] 12.5 mg PO BID Apixaban [Eliquis] 5 mg PO BID Spironolactone 25 mg [Aldactone 25 MG] 25 mg PO DAILY Levothyroxine Sodium 75 Mcg [Synthroid 75 Mcg] 75 mcg PO DAILY Follow up with: FRANCISCO GHOTRA [Primary Care Provider] -
[2024-07-16 13:25] VITALS: O2SAT 92
--- NOTE | 2024-07-16 16:14 | PCM.CONS ---
History of Present Illness - Date of Consult Date of Encounter: 07/16/24 Consulting Family Medicine Resident: MARS ALVARADO MD Requesting Provider: Attending Provider: ITALO BLANCAS MD Primary Care Provider: PCP: FRANCISCO GHOTRA - Consult Narrative Reason for Consult: Elevated troponin-I HPI: Patient is a 79F who denies fevers, chills, nausea, vomiting, diarrhea, syncope, presyncope, dysphagia,odynophagia, orthopnea, paroxysmal nocturnal dyspnea, shortness of breath, chest pain, refluxsymptoms, belly pain, dysuria, hematuria, melena, hematochezia, seizures, paralysis, or other neurological changes. All other systems have been reviewed and are negative. cc:: The requesting physician will be sent a copy of the consult. - Past Medical History Past Medical History: Yes Neurological History: No Pertinent History ENT History: No Pertinent History Cardiac History: Hypertension, Other Respiratory History: Asthma, Bronchitis, COPD Endocrine Medical History: Hypothyroidism Musculoskelatal History: Arthritis GI Medical History: Colitis History: No Pertinent History Pyscho-Social History: No Pertinent History Reproductive Disorders: Other Comment: leaky valve, polyps removed from uterus - Past Surgical History Past Surgical History: Yes Neuro Surgical History: No Pertinent History Cardiac History: No Pertinent History Respiratory Surgery: No Pertinent History, Other GI Surgical History: No Pertinent History Genitourinary Surgical Hx: No Pertinent History Musculskeletal Surgical Hx: Joint Replacement Female Surgical History: Other Other Surgical History: carpal tunnel both hands and left foot surgery for arthiritis with stainless steel rolando, total knee replacement bilaterally, - Social History Smoking Status: Never smoker Exposure to second hand smoke: No Alcohol: None Drug Use: none - Social Determinants of Health Will the patient participate in the screening: Yes Do you worry about a steady place to live?: No Do you have any problems with any of the following?: No known problems In the past 12 months,have you had to go without utilities?: No Have you or anyone in your house had to go without enough: No Transportation Issues: No Has anyone in your support network made you feel unsafe?: No Does the patient want assistance with any of the above?: No Medications & Allergies Home Medications: Home Medication List Amlodipine Besylate 5 mg PO HS 10/21/16 [History Confirmed 07/15/24] Pravastatin Sodium 40 mg PO HS 10/21/16 [History Confirmed 07/15/24] Apixaban [Eliquis] 5 mg PO BID 07/15/24 [History Confirmed 07/15/24] Carvedilol 12.5 mg [Coreg 12.5 mg] 12.5 mg PO BID 07/15/24 [History Conf irmed 07/15/24] Furosemide 20 mg [Lasix 20 mg] 20 mg PO DAILY 07/15/24 [History Confirmed 07/15/24] Levothyroxine Sodium 75 Mcg [Synthroid 75 Mcg] 75 mcg PO DAILY 07/15/24 [History Confirmed 07/15/24] Spironolactone 25 mg [Aldactone 25 MG] 25 mg PO DAILY 07/15/24 [History Confirmed 07/15/24] Albuterol Sulfate [Albuterol Sulfate Hfa] 8.5 gm IH Q6HPRN PRN 30 Days #1 inhaler 07/16/24 [Rx] Prednisone 20 mg [Deltasone 20 mg] 20 mg PO BID 5 Days #10 tablet 07/16/24 [Rx] Allergies/Adverse Reactions: Allergies Allergy/AdvReac Type Severity Reaction Status Date / Time Penicillins Allergy Severe stops Verified 07/15/24 17:29 breathing Exam - Vitals Vital Signs: Vital Signs - 24 hr Temp Pulse Resp BP BP Pulse Ox 07/16/24 13:21 96 H 18 92 L 07/16/24 12:00 97.7 F 90 16 149/81 93 L 07/16/24 07:44 98.1 F 85 16 148/79 95 07/16/24 07:06 91 H 18 92 L 07/16/24 04:00 97.5 F 79 18 140/84 95 07/16/24 00:00 98.0 F 93 H 20 126/67 95 07/15/24 20:00 97.5 F 88 18 138/73 95 07/15/24 19:20 90 16 94 L 07/15/24 17:41 84 18 95 07/15/24 17:32 98.4 F 88 24 175/79 97 07/15/24 17:00 83 24 130/84 07/15/24 16:30 77 30 H 144/86 96 General:: alert and oriented x 4, no acute distress HEENT: EOMI, No JVD Cardiovascular Exam: normal heart sounds, irregular, No murmur, No friction rub, No gallop Respiratory Exam: wheezing (Mild anteriorly.), other (Scattered crackles posteriorly.) SpO2: 92 Oxygen Delivery: Room Air Gastrointestinal/Abdomen Exam: normal bowel sounds Extremity Exam: other (2+ Dp pulses bilaterally.), No edema Neurologic: other (Grossly non-focal.) Results Vital Signs: Vital Signs - 24 hr Temp Pulse Resp BP BP Pulse Ox 07/16/24 13:21 96 H 18 92 L 07/16/24 12:00 97.7 F 90 16 149/81 93 L 07/16/24 07:44 98.1 F 85 16 148/79 95 07/16/24 07:06 91 H 18 92 L 07/16/24 04:00 97.5 F 79 18 140/84 95 07/16/24 00:00 98.0 F 93 H 20 126/67 95 07/15/24 20:00 97.5 F 88 18 138/73 95 07/15/24 19:20 90 16 94 L 07/15/24 17:41 84 18 95 07/15/24 17:32 98.4 F 88 24 175/79 97 07/15/24 17:00 83 24 130/84 07/15/24 16:30 77 30 H 144/86 96 Pain Assessment - Last Documented Pain Intensity 0 Pain Scale Used 0-10 Pain Scale Intake and Output: Intake & Output 07/14/24 07/15/24 07/16/24 07/17/24 11:59 11:59 11:59 11:59 Intake Total 720 580 Output Total 200 Balance 520 580 Weight 116.9 kg LAB: I have reviewed the Labs in [facility]. Radiology Exams: Radiology Procedures Category Date Time Status CHEST 1 VIEW (PORTABLE) Stat Exams 07/15/24 13:17 Completed CXR (AP) 07/15/2024: Portable apical lordotic chest again hyperinflated and now clear. Heart remains borderline enlarged. Bony thorax intact again with osteopenia and degenerative changes. No new/acute abnormalities. TTE 04/08/2022: 1) NO DEFINITE REGIONAL WALL MOTION ABNORMALITY. ESTIMATED GLOBAL LEFT VENTRICULAR EJECTION FRACTION BETWEEN 50 TO 55%. 2) MILD MITRAL REGURGITATION. 3) MILD AORTIC REGURGITATION. 4) MILD TO MODERATE TRICUSPID REGURGITATION. RIGHT VENTRICULAR SYSTOLIC PRESSURE OF 42 MM OF MERCURY. 5) MILDLY DILATED RIGHT SIDE CHAMBERS. 6) LEFT VENTRICLE DIASTOLIC DYSFUNCTION. Multi-Disciplinary Progress Notes: Multi-Disciplinary Progress Notes 07/16/24 11:58 Radiology Note by Sobia Tse 6 minute walk test performed. SpO2 @ rest 92% Minute 1- 93% Minute 2- 92% Minute 3-92% Minute 4-91% Minute 5-91% test ended at 5 minutes due to patient needing to rest. Addendum entered by Sobia Tse 07/16/24 13:00: 6 minute walk test was done on room air Initialized on 07/16/24 11:58 - END OF NOTE Assessment & Plan (1) Elevated troponin I measurement Current Visit: Yes Status: Acute Assessment & Plan: Presentation is not consistent with acute coronary syndrome. Secondary to demand ischemia caused by her RSV infection and hypoxemia at presentation. Normal chemical MPS in 10/2022. Continue usual cardiac medications and follow-up with her hearing stenographer, Dr. Ajit Mcmanus. Code(s): R79.89 - OTHER SPECIFIED ABNORMAL FINDINGS OF BLOOD CHEMISTRY (2) Longstanding persistent atrial fibrillation Current Visit: Yes Status: Acute Assessment & Plan: Ventricular response controlled with carvedilol. On systemic anticoagulation with Eliquis. Continue current medicla therapy. Code(s): I48.11 - LONGSTANDING PERSISTENT ATRIAL FIBRILLATION (3) Influenza A H1N1 infection Current Visit: No Status: Acute Assessment & Plan: Reason for admission. As per primary team. Code(s): J10.1 - FLU DUE TO OTH IDENT INFLUENZA VIRUS W OTH RESP MANIFEST (4) COPD exacerbation Current Visit: Yes Status: Acute Assessment & Plan: Secondary to RSV bronchitis. As per primary team. Code(s): J44.1 - CHRONIC OBSTRUCTIVE PULMONARY DISEASE W (ACUTE) EXACERBATION - Encounter Encounter: "The entirety of this encounter was performed via Telemedicine using audio and visual " Permission granted by patient for this type of encounter. Case discussed with Maxine Galloway NP. OK for discharge from cardiac standpoint. Mars Alvarado MD [facility] [phone]
[2024-07-16 16:26] VITALS: BP 139/74; PULSE 79; RESP 16; TEMP 97.6
== END 2024-07-16 17:20 | disposition home or self-care (01) ==
LOC: ED 13:09 → MED SURG 17:23
PROVIDERS: ADMIT Internal Medicine; ATTEND Internal Medicine
DX: J20.5 Acute bronchitis due to respiratory syncytial virus (principal); J44.1 Chronic obstructive pulmonary disease with (acute) exacerbation; E03.9 Hypothyroidism, unspecified; E78.5 Hyperlipidemia, unspecified; R79.89 Other specified abnormal findings of blood chemistry; I48.11 Longstanding persistent atrial fibrillation; I11.0 Hypertensive heart disease with heart failure; I50.9 Heart failure, unspecified; J10.1 Influenza due to other identified influenza virus with other respiratory manifestations; R60.0 Localized edema; E66.01 Morbid (severe) obesity due to excess calories; R09.02 Hypoxemia; Z79.01 Long term (current) use of anticoagulants; Z79.899 Other long term (current) drug therapy; Z68.42 Body mass index [BMI] 45.0-49.9, adult
CPT/HCPCS: 0241U; 36415; 71045; 80053; 83735; 83880; 84484; 85025; 87040; 93005; 93041; 94640; 94760; 99291; G0378; Q3014; 99285; J2919; A9270-GY

== ENCOUNTER 2025-02-23 17:43 | Emergency (ER) | payer MEDICARE, OTHER ==
--- NOTE | 2025-02-23 17:48 | ERPHSYRPT ---
- History of Present Illness Source: patient, EMS Reason for Fall: fainted Injuries/Pain Location: neck Loss of Consciousness: brief (seconds) Severity of Pain-Max: mild Severity of Pain-Current: mild Associated Symptoms (Fall): neck pain, No abdominal pain, No back pain, No lightheadedness Hx Tetanus, Diphtheria Vaccination/Date Given: Yes Hx Influenza Vaccination/Date Given: Yes Hx Pneumococcal Vaccination/Date Given: Yes - History of Present Illness Time Seen by Provider: 02/23/25 17:47 Physician History: 79-year-old female presents to the emergency room status post fall with LOC patient is on Eliquis for history of A-fib patient reports she has got some neck pain reports this was a mechanical fall denies any preceding chest pain or shortness of breath denies any arm pain or leg pain denies any back pain patient is primarily complaining of neck pain and is concerned because she is not on blood thinner now in ED for further eval (FLOYD MCMANUS) Allergies/Adverse Reactions: Penicillins Allergy (Severe, Verified 07/15/24 17:29) stops breathing Home Medications: Amlodipine Besylate 5 mg PO HS 10/21/16 [History] Pravastatin Sodium 40 mg PO HS 10/21/16 [History] Apixaban [Eliquis] 5 mg PO BID 07/15/24 [History] Carvedilol 12.5 mg [Coreg 12.5 mg] 12.5 mg PO BID 07/15/24 [History] Levothyroxine Sodium 75 Mcg [Synthroid 75 Mcg] 75 mcg PO DAILY 07/15/24 [History] Spironolactone 25 mg [Aldactone 25 MG] 25 mg PO DAILY 07/15/24 [History] Travel Risk - Emerging Infectious Disease Are you exhibiting symptoms associated with any current EIDs: Yes Symptoms: Cough: New Onset, Shortness of Breath - Review of Systems Constitutional: No Fever, No Chills Eyes: No Symptoms Ears, Nose, & Throat: No Symptoms Respiratory: No Cough, No Dyspnea Cardiac: No Chest Pain, No Edema, No Syncope Abdominal/Gastrointestinal: No Abdominal Pain, No Nausea, No Vomiting, No Diarrhea Genitourinary Symptoms: No Dysuria Musculoskeletal: Neck Pain, Fall, No Back Pain Skin: No Rash Neurological: No Dizziness, No Focal Weakness, No Sensory Changes Psychological: No Symptoms Endocrine: No Symptoms All Other Systems: Reviewed and Negative - Past Medical History Pertinent Past Medical History: Yes Neurological History: No Pertinent History ENT History: No Pertinent History Cardiac History: Hypertension, Other Respiratory History: Asthma, Bronchitis, COPD Endocrine Medical History: Hypothyroidism Musculoskeletal History: Arthritis GI Medical History: Colitis History: No Pertinent History Psycho-Social History: No Pertinent History Female Reproductive Disorders: Other Other Medical History: leaky valve, polyps removed from uterus - Past Surgical History Past Surgical History: Yes Neuro Surgical History: No Pertinent History Cardiac: No Pertinent History Respiratory: No Pertinent History, Other Gastrointestinal: No Pertinent History Genitourinary: No Pertinent History Musculoskeletal: Joint Replacement Female Surgical History: Other Other Surgical History: carpal tunnel both hands and left foot surgery for arthiritis with stainless steel [place], total knee replacement bilaterally, - Social History Smoking Status: Never smoker Exposure to second hand smoke: No Drug Use: none - Social Determinants of Health Will the patient participate in the screening: Yes Do you worry about a steady place to live?: No In the past 12 months,have you had to go without utilities?: No Transportation Issues: No Has anyone in your support network made you feel unsafe?: No Have you or anyone in your house had to go w/o enough food: No - Arabella Coma Score Best Eye Response ([place]): (4) open spontaneously Best Verbal Response ([place]): (5) oriented Best Motor Response ([place]): (6) obeys commands [place] Total: 15 - Physical Exam General Appearance: no apparent distress, alert Head Injury: no evidence of injury Eye Exam: PERRL/EOMI ENT Exam: airway nml Neck Exam: normal inspection, paraspinous muscle tender, No tenderness Respiratory/Chest Exam: normal breath sounds, No chest tenderness, No respiratory distress Cardiovascular Exam: normal heart sounds, irregular Gastrointestinal Exam: soft, No tenderness, No distention, No guarding, No ecchymosis Back Exam: normal inspection, No vertebral tenderness Extremity Exam: normal inspection, normal range of motion, pelvis stable, No deformities Neurologic Exam: alert, oriented x 3, cooperative, sensation nml, No motor deficits Skin Exam: normal color, warm, dry - Nursing Vital Signs Nursing Vital Signs: Initial Vital Signs Temperature 97.6 F 02/23/25 17:44 Pulse Rate 75 02/23/25 17:44 Respiratory Rate 16 02/23/25 17:44 Blood Pressure 147/91 02/23/25 17:44 O2 Sat by Pulse Oximetry 97 02/23/25 17:44 Pain Scale Pain Intensity 3 - Course EKG Interpreted by Me: RATE (70), A-fib, Non-specific ST Changes, Other (no STEMI) Ordered Tests: Active Orders 24 hr Category Date Time Status Family Protection Specialist STAT Care 02/23/25 17:45 Completed EKG-ER Only STAT Care 02/23/25 17:44 Completed IV Insertion STAT Care 02/23/25 17:44 Completed Pulse Oximetry (ED) STAT Care 02/23/25 17:47 Completed CERVICAL SPINE WO CONTRAST [CT] Stat Exams 02/23/25 17:45 Completed HEAD WITHOUT CONTRAST [CT] Stat Exams 02/23/25 17:45 Completed CBC W DIFF Stat Lab 02/23/25 18:00 Completed CMP Stat Lab 02/23/25 18:00 Completed CULTURE,URINE Stat Lab 02/23/25 18:25 Received MAGNESIUM Stat Lab 02/23/25 18:00 Completed NT PRO BNPII Stat Lab 02/23/25 18:00 Completed PROTIME WITH INR Stat Lab 02/23/25 18:00 Completed TROPONIN Stat Lab 02/23/25 18:00 Completed UA W/RFX UR CULTURE Stat Lab 02/23/25 18:25 Completed Medication Summary Discontinued Medications Generic Name Dose Route Start Last Admin Trade Name Freq PRN Reason Stop Dose Admin Sodium Chloride 1,000 mls @ 999 mls/hr 02/23/25 17:44 02/23/25 19:16 Sodium Chloride 0.9% 1000 Ml IV 02/23/25 18:44 Infused .Q1H1M STA Infusion Sodium Chloride Confirm 02/23/25 18:11 Sodium Chloride 0.9% 1000 Ml Administered 02/23/25 18:12 Dose 1,000 mls @ ud .ROUTE .STK-MED ONE Nitrofurantoin Macrocrystals 100 mg 02/23/25 18:47 02/23/25 18:53 Nitrofurantoin Macro 100 Mg Capsule PO 02/23/25 18:48 100 mg STAT ONE Administration Nitrofurantoin Macrocrystals Confirm 02/23/25 18:51 Nitrofurantoin Macro 100 Mg Capsule Administered 02/23/25 18:52 Dose 100 mg .ROUTE .STK-MED ONE Lab/Rad Data: Laboratory Result Diagrams 02/23/25 18:00 02/23/25 18:00 Laboratory Results 02/23/25 02/23/25 02/23/25 Range/Units 18:25 18:00 18:00 WBC (3.98-10.04) x10^3/uL RBC (3.93-5.22) x10^6/uL Hgb (11.2-15.7) g/dL Hct (34.1-44.9) % MCV (79.4-94.8) fL MCH (25.6-32.2) pg MCHC (32.2-35.5) g/dL RDW (11.7-14.4) % Plt Count (182-369) x10^3/uL MPV (9.4-12.3) fL Gran % (34.0-71.1) % Immature Gran % (Auto) (0.001-0.429) % Nucleat RBC Rel Count (0.00-0.2) % Eos # (Auto) (0.04-0.36) x10^3/uL Immature Gran # (Auto) (0.001-0.031) x10^3u/L Absolute Lymphs (auto) (1.18-3.74) x10^3/uL Absolute Monos (auto) (0.24-0.86) x10^3/uL Absolute Nucleated RBC (0.00-0.012) x10^3u/L Lymphocytes % (19.3-51.7) % Monocytes % (4.7-12.5) % Eosinophils % (0.7-5.8) % Basophils % (0.1-1.2) % Absolute Granulocytes (1.56-6.13) x10^3/uL Basophils # (0.01-0.08) x10^3/uL PT 11.2 (9.4-12.5) SECONDS INR 1.00 (0.8-3.0) Sodium (135-145) mmol/L Potassium (3.5-5.1) mmol/L Chloride (98-107) mmol/L Carbon Dioxide (22-30) mmol/L Anion Gap (5-15) MEQ/L BUN (7-17) mg/dL Creatinine (0.52-1.04) mg/dL Estimated GFR ML/MIN Glucose (74-106) mg/dL Calcium (8.4-10.2) mg/dL Magnesium (1.6-2.3) mg/dL Total Bilirubin (0.2-1.3) mg/dL AST (14-36) U/L ALT (0-35) U/L Alkaline Phosphatase (38-126) U/L Troponin I < 0.012 (0.000-0.033) ng/mL NT-Pro-B Natriuret Pep (<300) pg/mL Serum Total Protein (6.3-8.2) g/dL Albumin (3.5-5.0) g/dL Urine Color Yellow (Yellow) Urine Appearance Clear (Clear) Urine pH 5.5 (4.6-8.0) Ur Specific [place] 1.015 (1.005-1.030) Urine Protein 30 (Negative) Urine Glucose (UA) Negative (Negative) mg/dL Urine Ketones Negative (Negative) Urine Blood Negative (Negative) Urine Nitrite Positive A (Negative) Urine Bilirubin Negative (Negative) Urine Urobilinogen 0.2 (0.2) mg/dL Ur Leukocyte Esterase Small A (Negative) U Hyaline Cast (Auto) 3-5 A (0-2) /LPF Urine Microscopic RBC 6-10 A (0-5) /HPF Urine Microscopic WBC 51-100 A (0-5) /HPF Ur Epithelial Cells None Seen (None Seen) /HPF Urine Bacteria Many A (None Seen) /HPF Urine Culture Reflexed YES (NO) 02/23/25 02/23/25 Range/Units 18:00 18:00 WBC 6.2 (3.98-10.04) x10^3/uL RBC 5.64 H (3.93-5.22) x10^6/uL Hgb 13.6 (11.2-15.7) g/dL Hct 46.9 H (34.1-44.9) % MCV 83.2 (79.4-94.8) fL MCH 24.1 L (25.6-32.2) pg MCHC 29.0 L (32.2-35.5) g/dL RDW 13.9 (11.7-14.4) % Plt Count 319 (182-369) x10^3/uL MPV 9.5 (9.4-12.3) fL Gran % 63.9 (34.0-71.1) % Immature Gran % (Auto) 0.3 (0.001-0.429) % Nucleat RBC Rel Count 0.0 (0.00-0.2) % Eos # (Auto) 0.36 (0.04-0.36) x10^3/uL Immature Gran # (Auto) 0.02 (0.001-0.031) x10^3u/L Absolute Lymphs (auto) 1.34 (1.18-3.74) x10^3/uL Absolute Monos (auto) 0.49 (0.24-0.86) x10^3/uL Absolute Nucleated RBC 0.00 (0.00-0.012) x10^3u/L Lymphocytes % 21.5 (19.3-51.7) % Monocytes % 7.9 (4.7-12.5) % Eosinophils % 5.8 (0.7-5.8) % Basophils % 0.6 (0.1-1.2) % Absolute Granulocytes 3.99 (1.56-6.13) x10^3/uL Basophils # 0.04 (0.01-0.08) x10^3/uL PT (9.4-12.5) SECONDS INR (0.8-3.0) Sodium 134 L (135-145) mmol/L Potassium 3.9 (3.5-5.1) mmol/L Chloride 98 (98-107) mmol/L Carbon Dioxide 23 (22-30) mmol/L Anion Gap 16.8 H (5-15) MEQ/L BUN 32 H (7-17) mg/dL Creatinine 1.25 H (0.52-1.04) mg/dL Estimated GFR 44.4 ML/MIN Glucose 121 H (74-106) mg/dL Calcium 9.0 (8.4-10.2) mg/dL Magnesium 1.9 (1.6-2.3) mg/dL Total Bilirubin 1.10 (0.2-1.3) mg/dL AST 32 (14-36) U/L ALT 19 (0-35) U/L Alkaline Phosphatase 111 (38-126) U/L Troponin I (0.000-0.033) ng/mL NT-Pro-B Natriuret Pep 1260 (<300) pg/mL Serum Total Protein 8.4 H (6.3-8.2) g/dL Albumin 4.6 (3.5-5.0) g/dL Urine Color (Yellow) Urine Appearance (Clear) Urine pH (4.6-8.0) Ur Specific [place] (1.005-1.030) Urine Protein (Negative) Urine Glucose (UA) (Negative) mg/dL Urine Ketones (Negative) Urine Blood (Negative) Urine Nitrite (Negative) Urine Bilirubin (Negative) Urine Urobilinogen (0.2) mg/dL Ur Leukocyte Esterase (Negative) U Hyaline Cast (Auto) (0-2) /LPF Urine Microscopic RBC (0-5) /HPF Urine Microscopic WBC (0-5) /HPF Ur Epithelial Cells (None Seen) /HPF Urine Bacteria (None Seen) /HPF Urine Culture Reflexed (NO) - Progress Progress Note: 02/23/25 19:51 Patient was turned over from Dr. Mcmanus to me pending CT results. This is a 79-year-old female complaint of syncopal episode after getting up from the bathroom and urinating. Denied any significant prodromal symptoms prior to. Patient report was out for a few seconds. Patient was noted to have UTI. Dr. Mcmanus states patient most likely secondary to UTI and will be treated with Macrobid. Patient's son at bedside. I discussed the findings with the patient with patient's son at bedside. Informed the patient she needs to return immediately if starts having cardiac symptoms such as heart racing or trouble breathing as this could potentially heart related. At this time do not suspect and have low suspicion this is cardiac in etiology or dysrhythmia. Most likely etiology is post micturition syncope as patient just gotten up from the bathroom and is otherwise without complaints at this time. (ANIBAL GUERRERO) 02/23/25 18:48 Patient is found to have urinary tract infection we will be started on nitrofurantoin or Macrobid will be prescribed antibiotics for home as renal function shows some acute kidney injury with a creatinine 1.25 patient also had a syncopal episode pending further CT results 02/23/25 18:48 02/23/25 19:06 Case signed out to Dr. Guerrero pending CT results (FLOYD MCMANUS) - Departure Critical Care Time: No - Departure Clinical Impression: MONA (acute kidney injury) Fall Qualifiers: Encounter type: initial encounter Qualified Code(s): W19.XXXA - Unspecified fall, initial encounter Syncope Qualifiers: Syncope type: unspecified Qualified Code(s): R55 - Syncope and collapse UTI (urinary tract infection) Qualifiers: Urinary tract infection type: site unspecified Hematuria presence: without hematuria Qualified Code(s): N39.0 - Urinary tract infection, site not specified Condition: Stable Referrals: FRANCISCO GHOTRA [Primary Care Provider, [facility]] - Follow up/PCP as directed Instructions: Syncope (Fainting) (DC) Prescriptions: Nitrofurantoin Macro 100 mg [Macrobid 100MG Capsule] 100 mg PO BID #10 cap
[2025-02-23 18:01] LABS: BASOPHIL % 0.6 % (0.1-1.2); Basophil (Absolute #) 0.04 x10^3/uL (0.01-0.08); Eosinophil (Absolute #) 0.36 x10^3/uL (0.04-0.36); Hematocrit 46.9 % (34.1-44.9); Hemoglobin 13.6 g/dL (11.2-15.7); IMMATURE GRAN # 0.02 x10^3u/L (0.001-0.031); IMMATURE GRAN % 0.3 % (0.001-0.429); Lymphocyte (Absolute #) 1.34 x10^3/uL (1.18-3.74); Mean Corpuscular Hemoglobin 24.1 pg (25.6-32.2); Mean Corpuscular Hgb Concent. 29.0 g/dL (32.2-35.5); Monocyte (Absolute #) 0.49 x10^3/uL (0.24-0.86); NUCLEATED RBC # 0.00 x10^3u/L (0.00-0.012); NUCLEATED RBC % 0.0 % (0.00-0.2); Platelet Count 319 x10^3/uL (182-369); Red Blood Count 5.64 x10^6/uL (3.93-5.22); White Blood Count 6.2 x10^3/uL (3.98-10.04)
[2025-02-23 18:02] VITALS: TEMP 97.6
[2025-02-23 18:15] LABS: INR 1.0 (0.8-3.0); PROTIME 11.2 SECONDS (9.4-12.5)
[2025-02-23 18:24] LABS: Calcium 9.0 mg/dL (8.4-10.2); Carbon Dioxide 23.0 mmol/L (22-30); Creatinine 1 1.25 mg/dL (0.52-1.04); EST GLOMERULAR FILTRATION RATE 44.4 ML/MIN; Glucose 121.0 mg/dL (74-106); NT PRO BNPII 1260.0 pg/mL (<300); Potassium 3.9 mmol/L (3.5-5.1); SGOT/AST 32.0 U/L (14-36); SGPT/ALT 19.0 U/L (0-35); Total Protein 8.4 g/dL (6.3-8.2)
[2025-02-23 18:39] LABS: Glucose, Urine Negative (Negative); Protein,Urine Dip 30 (Negative); WBC 51-100 /HPF (0-5)
[2025-02-23] MEDS ORDERED: Macrobid 100MG Capsule ONE (18:51)
[2025-02-23] MEDS: Macrobid 100MG Capsule PO ONE (18:53)
--- NOTE | 2025-02-23 19:28 | XRAY ---
CLINICAL HISTORY: fall loc on blood thinner COMPARISON: none TECHNIQUE: Axial non-contrast CT scan of the brain was performed from the skull base to the high parietal region in axial, sagittal and coronal reconstructions. One of the following dose reduction techniques were utilized for this exam: Automated exposure control, adjustment of the mA and/or kV according to patient size, use of iterative reconstruction. CTDI: 53.92 mGy , DLP: 1523.47 mGy.cm FINDINGS: Brain Parenchyma: No evidence of acute infarct, hemorrhage, or mass effect. Few bilateral frontoparietal subcprtical white matter hypodensities, consistent with chronic microvascular ischemic changes. Normal attenuation of the cerebellum, and brainstem. No abnormal areas of hypo- or hyperattenuation. Ventricular System: Ventricles are normal in size and configuration. No evidence of hydrocephalus or ventricular enlargement. Subarachnoid Spaces: Prominent sulci and cisterns. No evidence of subarachnoid hemorrhage or extra-axial fluid collections. Cerebellum and Brainstem: No masses, lesions, or areas of abnormal density. Orbits: Normal appearance of the globes, optic nerves, and extraocular muscles. No evidence of orbital masses or abnormal density. Sinuses: Clear paranasal sinuses. No evidence of sinusitis or mucosal thickening. Mastoid Air Cells: Clear mastoid air cells. No evidence of mastoiditis. Skull: Normal skull morphology. IMPRESSION: 1. No acute infarct or hemorrhage, no trauma related acute injuries. 2. Mild microvascular chronic ischemic changes. 3. Age appropriate involutional brain changes. Electronically Signed by: Sergio Head MD. (02/23/2025 19:28:21 EST)
--- NOTE | 2025-02-23 19:42 | XRAY ---
CLINICAL HISTORY: fall loc on blood thinner COMPARISON: No previous studies are available for comparison. TECHNIQUE: CT scan of the cervical spine was performed without the administration of intravenous contrast. Contiguous axial images were obtained from the skull base to the upper thoracic spine. Coronal and sagittal reformatted images were also reviewed. One of the following dose reduction techniques was utilized for this exam. Automated exposure control, adjustment of the mA and/or kV according to patient size, and use of iterative reconstruction. FINDINGS: Vertebrae: The vertebral bodies are normal in height. No evidence of acute fracture or dislocation. Diffuse osteopenia. Grade I degenerative anterolisthesis of C2/3, C4/5 and C5/6. Atlantoaxial degenerative changes. No signs of lytic or sclerotic lesions. Normal configuration of the posterior elements. Partial fusion of the left neural arches of C3 and C4 vertebrae. Intervertebral Discs: The intervertebral disc spaces are preserved. No evidence of significant disc bulging or herniation. No calcifications or ossifications noted within the discs. Facet Joints: Marked multilevel facet arthropathy. No dislocation or subluxation. Prevertebral Soft Tissues: The prevertebral soft tissues are normal in thickness without evidence of mass or abnormal fluid collection. Additional Findings: No other significant findings are noted in the visualized soft tissue structures or bony elements. IMPRESSION: 1. No evidence of acute fracture, dislocation. 2. Multilevel hypertrophic facet arthropathy with grade I degenerative anterolisthesis of C2/3, C4/5 and C5/6. 3. Diffuse osteopenia. Electronically Signed by: Sergio Head MD. (02/23/2025 19:41:06 EST)
[2025-02-23 20:00] VITALS: PULSE 82; RESP 19; O2SAT 94
[2025-02-23 20:06] VITALS: BP 141/104
== END 2025-02-23 20:08 | disposition home or self-care (01) ==
LOC: ED 17:43
DX: N17.9 Acute kidney failure, unspecified (principal); W19.XXXA Unspecified fall, initial encounter; R55 Syncope and collapse; N39.0 Urinary tract infection, site not specified; I10 Essential (primary) hypertension; Z79.01 Long term (current) use of anticoagulants; Z79.899 Other long term (current) drug therapy